=== PATIENT | male | born 1930 | race Caucasian/White ===

== ENCOUNTER → 2016-06-25 07:32 | Day surgery (SDC) | payer MEDICARE ==
--- NOTE | 2016-06-11 10:52 | HP ---
PREOPERATIVE HISTORY AND PHYSICAL: DATE OF SURGERY/ADMISSION: 06/25/16 PROCEDURE: Left carpal tunnel release. ACCOUNTANT PROPERTY: Dr. Butler. CHIEF COMPLAINT: Numbness and tingling, left hand. HISTORY OF PRESENT ILLNESS: This is an 85-year-old male who complains of numbness and tingling in h is left hand for the past 6 months. He also has symptoms in the right hand, but less so. He has villanueva d a nerve conduction study, which showed bilateral severe carpal tunnel syndrome. He is really only bothered with symptoms on the left. When he wakes up in the morning, his hand is painful and he villanueva s noticed weakness in his hand and loss of some muscle mass. There was no specific injury. Last ye ar, he had an aortic valve replacement. Prior to that he had been having some symptoms of shortness of breath and fatigue, but since surgery he has done very very well. He has not had any cardiac sy mptoms and has followed up with his soup mixer who had told him he is doing very well. He is inte rested in pursuing surgical intervention for the left carpal tunnel at this time in the form of a le ft carpal tunnel release. PAST MEDICAL HISTORY: 1. History of aortic valve dysfunction. 2. Hypertension. 3. Hypercholesterolemia. 4. Benign prostatic hypertrophy. PAST SURGICAL HISTORY: 1. Bilateral total knee arthroplasties. 2. Aortic valve replacement in June 2015. MEDICATIONS: 1. Amlodipine besylate 10 mg 1 tab daily. 2. Mikael aspirin 325 mg daily. 3. Finasteride 5 mg daily. 4. Flomax 0.4 mg daily. 5. Irbesartan/hydrochlorothiazide 150/12.5 mg daily. 6. Lipitor 10 mg daily. 7. Lisinopril 20 mg daily. 8. Metoprolol succinate ER 50 mg 1 tab b.i.d. 9. Niacin 500 mg 1 tab daily. 10. Vitamin B12, 1000 mcg daily. ALLERGIES: No known drug allergies. FAMILY MEDICAL HISTORY: Noncontributory. SOCIAL HISTORY: The patient is retired. He denies tobacco use or recreational drug use. Admits to alcohol use on a very rare occasion. REVIEW OF SYSTEMS: General: Negative for fevers, chills or night sweats. No known anesthesia prob lems. HEENT: Negative for headache, lightheadedness, or syncopal episodes. Integumentary: Negati ve for abrasions, lesions or open wounds. Cardiothoracic: Positive for hypertension. Negative for chest pain, palpitations or edema. Pulmonary: Negative for shortness of breath with exertion, lunchroom attendant armond cough or COPD. GI: Negative for nausea, vomiting, diarrhea, constipation or GERD. : Positiv e for benign prostatic hypertrophy. Negative for nocturia, urinary frequency or urgency. Musculosk eletal: Positive for current complaint. Negative for chronic or intermittent back pain. Neurologi luaren: Negative for history of seizure, stroke or epilepsy. Endocrine: Negative for diabetes or thy roid issues. Hematologic: Negative for easy bruising, anemia, excessive bleeding or history of DVT. Infectious Disease: Negative for history of MRSA, hepatitis C or HIV. PHYSICAL EXAMINATION GENERAL: Well-developed, well-nourished 85-year-old male in no acute distress. VITAL SIGNS: Height 5 feet 7 inches, weight 206 pounds. Pulse rate 75, blood pressure 164/75. HEENT: Normocephalic, atraumatic. Pupils are equal, round and reactive to light and accommodation. Extraocular movements are intact. NECK: Supple. No palpable lymph nodes. Throat is clear. PULMONARY: Lungs are clear to auscultation bilaterally. No wheezes, rales or rhonchi. CARDIOTHORACIC: Regular rate and rhythm. S1, S2. No murmurs, rubs or gallops. No edema. ABDOMEN: Positive bowel sounds. Soft, nontender. MUSCULOSKELETAL: On exam of his left hand, there is thenar wasting and weakness with thumb abductio n. He cannot make a full tight fist secondary to arthritic changes in his fingers. He does have fu ll extension of his fingers. He had decreased sensation to the median nerve distribution compared t o the ulnar nerve distribution. He has a mildly positive Tinel's in the left wrist and a positive P halen's test. NEUROLOGICAL: Alert and oriented x3. Cranial nerves II through XII are intact. Sensation is intact to light touch. IMAGING STUDIES: EMG nerve conduction study shows severe left carpal tunnel syndrome. IMPRESSION: Left carpal tunnel syndrome. PLAN: The patient is scheduled to undergo a left carpal tunnel release with Dr. Regalado on 06/25/16. He will return to the office 10 to 14 days postop for followup and suture removal. A prescription for Ultracet was e-scribed to the patient's pharmacy for postoperative pain management. We will get a note of clearance from his soup mixer, Dr. Butler, to prior to proceeding with surgery. DIANN WORRELL [id number]/[facility] #: [id number]
[~2016-06-25 07:32] MED LIST: Acetaminophen TAB* 325 MG PO PRN; Buffered Lidocaine 1% SYRIN* 3 ML/SYR SYRINGE INTRADERM ONE; Dexamethasone IV* 4 MG/ML 1 ML (4 MG) ONE; Dexamethasone TAB* 4 MG PO ONE; Famotidine IV* 10 MG/ML 2 ML (20 mg) IV ONE; Famotidine IV* 10 MG/ML 2 ML (20 mg) ONE; HYDROcodone/ACETAMIN 5-325 MG* 1 TAB PO PRN; Ibuprofen TAB* 400 MG PO PRN; Lidocaine 1% INJ* 10 MG/ML 30 ML SDV ONE; Lidocaine 2% PF* 5 ML VIAL ONE; Ondansetron INJ* 2 MG/ML VIAL IV PRN; Propofol* 10 MG/ML 20 ML BTL IV PUSH ONE; fentaNYL* 50 MCG/ML 2 ML VIAL (100 MCG VIAL) IV PRN; fentaNYL* 50 MCG/ML 2 ML VIAL (100 MCG VIAL) ONE
[2016-06-25 09:35] VITALS: BP 122/57
--- NOTE | 2016-06-25 22:19 | OP ---
DATE OF OPERATION: 06/25/16 [facility] DATE OF : 28 SURGEON: Dr. Regalado. [employer] WINDOWS ENGINEER: DIANN Middleton ANESTHESIA: Local MAC. PRE-OP DIAGNOSIS: Left carpal tunnel syndrome. POST-OP DIAGNOSIS: Left carpal tunnel syndrome. OPERATIVE PROCEDURE: Left carpal tunnel release. ESTIMATED BLOOD LOSS: Zero. TOURNIQUET TIME: 5 minutes. INDICATIONS: Eduard is an 85-year-old man with numbness and tingling in the median nerve distribution of his left hand. He presents for left carpal tunnel release. DESCRIPTION OF PROCEDURE: The patient was brought to the operating room, he was given a sedation anesthetic and a local infiltration of 10 cc of 1% plain lidocaine. The skin of his left hand and forearm was prepped and draped in the usual sterile fashion. The hand and forearm were exsanguinated and the tourniquet elevated to 250 mmHg. A longitudinal incision was made in the palm in line with the ring finger. We dissected through the subcutaneous tissue, down to the transverse carpal ligament. The ligament was divided sharply with a knife and then more proximally with the scissors. The nerve was dissected free from the surrounding tissue and there was an area of marked compression at the mid portion of the ligament. The wound was irrigated and the skin edges were reapproximated with 4-0 suture. The wound was dressed with Xeroform, 4x4, Webril, and a Sixto wrap. The patient tolerated the procedure well, was brought to the recovery room in good condition. [id number]/[facility] #: [id number] MTDD
== END | disposition home or self-care (01) ==
LOC: OREAST 07:32
PROVIDERS: ATTEND Orthopaedic Surgery
DX: G56.02 Carpal tunnel syndrome, left upper limb (principal); I10 Essential (primary) hypertension; E78.5 Hyperlipidemia, unspecified; Z95.2 Presence of prosthetic heart valve
CPT/HCPCS: J1100; J2001; J2704; J3010

== ENCOUNTER → 2017-03-21 11:31 | Emergency (ER) | payer MEDICARE ==
[2017-03-21 12:38] LABS: ABS Basophils 0 10^3/ul (0-0.2); ABS Eosinophils 0.1 10^3/ul (0-0.6); ABS Lymphocytes 0.9 10^3/ul (1.0-4.8); ABS Monocytes 0.8 10^3/ul (0-0.8); ABS Neutrophils 7.5 10^3/ul (1.5-7.7); ABS Nucleated RBC 0.01 10^3/ul; Eosinophil % 1.5 % (0-6); Hematocrit 37 % (42-52); Hemoglobin 12.4 g/dl (14.0-18.0); Lymphocyte % 9.3 % (25-47); Mean Corpuscular HGB Conc 34 g/dl (31-36); Mean Corpuscular Hemoglobin 29 pg (27-31); Mean Corpuscular Volume 85 fL (80-94); Mean Platelet Volume 9 um3 (7.4-10.4); Nucleated Red Blood Cells % 0.1; Platelet Count 214 10^3/ul (150-450); Red Cell Distribution Width 15 % (10.5-15); White Blood Count 9.3 10^3/ul (3.5-10.8)
[2017-03-21 12:44] LABS: INR 1.02 (0.77-1.02)
[2017-03-21 12:49] LABS: EGFR Non-African American 67.6 (>60)
--- NOTE | 2017-03-21 13:21 | RAD ---
INDICATION: Worsening of RIGHT lower back pain. COMPARISON: No relevant prior exams available on the [facility]. TECHNIQUE: Multidetector CT images were obtained from the lung bases to the ischial tuberosities. Evaluation of the viscera is limited without IV contrast. Multiplanar reformation. REPORT: Calcific plaque along the diaphragmatic surfaces most consistent with prior asbestos exposure. No suspicious basilar pulmonary lesions or pleural effusions. No CT abnormality of the unenhanced liver. The gallbladder is packed with stones. Negative for biliary dilatation. No CT abnormality of the pancreas or spleen. No CT abnormality of the upper GI, small bowel, or retrocecal appendix. Mild colonic diverticulosis without findings of diverticulitis. Negative for ascites, free air, or significant hernias. Normal adrenal glands. Unremarkable kidneys. Unremarkable nondilated ureters and partially distended urinary bladder. Mild calcification at the prostate. Negative for lymphadenopathy. Peripheral vascular calcifications. Negative for aortoiliac aneurysm. Physiologic distention of the IVC. Negative for suspicious focal osseous lesions or fracture. 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 Grade 2 L3-L4 degenerative anterolisthesis. Grade 1 degenerative L4-L5 anterolisthesis. At L3-L4 degenerative anterolisthesis, degenerative spondylosis with moderately severe disc space loss and facet joint osteoarthritis results in moderate bilateral foraminal stenosis. Degenerative spondylosis and posterior element osteoarthritis results in moderately severe acquired central canal stenosis. At L4-L5 similar factors result in mild RIGHT and moderate LEFT foraminal stenosis. Degenerative spondylosis and posterior element osteoarthritis results in mild acquired central canal stenosis. At L5-S1 degenerative spondylosis and facet joint osteoarthritis results in moderately severe RIGHT foraminal stenosis. IMPRESSION: 1. Stigmata of prior asbestos exposure with calcified pleural plaques along the diaphragmatic surfaces. 2. Cholelithiasis without additional CT of the malleus of the gallbladder. 3. Normal appendix documented. Mild colonic diverticulosis. 4. Negative for urolithiasis or obstructive uropathy. 5. Multilevel acquired spinal stenosis as described.
[2017-03-21 13:45] LABS: Urine Appearance Clear; Urine Blood 1+ (Negative); Urine Color Straw; Urine Ketones Negative (Negative); Urine Protein Negative (Negative); Urine Specific Gravity 1.005 (1.010-1.030); Urine Urobilinogen Negative (Negative)
--- NOTE | 2017-03-21 13:59 | ED ---
Back Pain - HPI Summary HPI Summary: Patient presents with daughter to the ED with CC of right lower back pain which has been present since about the summer time. Pain is stabbing, intermittent and worse with certain movements. He denies pain on a daily basis, but states recently has gotten worse. Has been using lidocaine patches with mild relief. Today, tried to have the licodaine patch, but was not helping. Denies fevers, sweats or chills. Denies urinary symptoms including hematuria. Never dx with kidney stones. Hx includes valve replacement, but denies other. Takes tylenol intermittently for the low back pain with mild relief. Patient states he is very active, with first onset of pain in the low back identified while mowing the lawn this summer. Denies hx of back pain. Denies b/b dysfunction. Aggravated with bending forward or sitting, better with lidocaine patch. Never tried pain management. - History of Current Complaint Chief Complaint: EDBackInjuryPain Stated Complaint: BACK PAIN Time Seen by Provider: 03/21/17 11:49 Hx Obtained From: Patient Onset/Duration: Sudden Onset, Worse Since Onset/Duration: Started Days Ago Timing: Intermittent, Lasting Minutes Back Pain Location: Is Discrete @ - low right back pain Severity Initially: Moderate Severity Currently: Moderate Pain Intensity: 2 Pain Scale Used: 0-10 Numeric Character: Sharp Aggravating Symptom(s): Bending Associated Signs And Symptoms: Positive: Negative. Negative: Swelling, Redness , Bruising, Fever, Weakness, Numbness, Tingling, Abdominal Pain, Flank Pain, Bladder Incontinence, Bowel Incontinence, Weight Loss, Pain with Weight Bearing - Risk Factors AAA Risk Factors: Negative TAD Risk Factors: Negative Cauda Equina Risk Factors: Negative Epidural Abscess Risk Factors: Negative - Allergies/Home Medications Allergies/Adverse Reactions: Allergies Allergy/AdvReac Type Severity Reaction Status Date / Time No Known Allergies Allergy Verified 06/25/16 07:55 PMH/Surg Hx/FS Hx/Imm Hx Previously Healthy: Yes Endocrine/Hematology History: Reports: Hx Diabetes, Hx Thyroid Disease Cardiovascular History: Reports: Hx Hypertension, Hx 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, Other Cardiovascular Problems/Disorders - HIGH CHOLESTEROL Respiratory History: Reports: Hx Asthma Denies: Hx Chronic Obstructive Pulmonary Disease (COPD) GI History: Reports: Hx Ulcer History: Reports: Other Problems/Disorders - ENLARGED PROSTATE Musculoskeletal History: Reports: Hx Arthritis Sensory History: Reports: Hx Cataracts - 12/09, 12/16, Hx Contacts or Glasses Denies: Hx Hearing Aid Opthamlomology History: Reports: Hx Cataracts - 12/09, 12/16, Hx Contacts or Glasses Neurological History: Reports: Hx Nerve Disease - carpal tunnel left hand - Surgical History Surgery Procedure, Year, and Place: Knee Replacement bilat. Aortic valve replacement 2016 Hx Anesthesia Reactions: No - Immunization History Date of Influenza Vaccine: 10/2016 Hx Pertussis Vaccination: No Immunizations Up to Date: Unable to Obtain/Confirm Infectious Disease History: No Infectious Disease History: Reports: Hx Hepatitis, Hx Human Immunodeficiency Virus (HIV) Denies: Traveled Outside the [place] in Last 30 Days - Family History Known Family History: Positive: Hypertension - Social History Occupation: Unemployed, Retired Lives: With Family Alcohol Use: Rare Hx Substance Use: No Substance Use Type: Reports: None Hx Tobacco Use: Yes Smoking Status (MU): Never Smoked Tobacco Review of Systems Constitutional: Negative Negative: Fever, Chills, Fatigue Eyes: Negative ENT: Negative Respiratory: Negative Gastrointestinal: Negative Positive: no symptoms reported, see HPI Positive: Arthralgia - right low back pain just superior to the sciatic joint Skin: Negative Neurological: Negative All Other Systems Reviewed And Are Negative: Yes Physical Exam Triage Information Reviewed: Yes Vital Signs On Initial Exam: Initial Vitals Temp Pulse Resp BP Pulse Ox 98.7 F 80 18 164/78 98 03/21/17 11:31 03/21/17 11:31 03/21/17 11:31 03/21/17 11:31 03/21/17 11:31 Vital Signs Reviewed: Yes Appearance: Positive: Well-Appearing, No Pain Distress, Well-Nourished Skin: Positive: Warm, Skin Color Reflects Adequate Perfusion Head/Face: Positive: Normal Head/Face Inspection Eyes: Positive: EOMI, TEENA, Conjunctiva Clear Neck: Positive: Supple, Nontender, No Lymphadenopathy Respiratory/Lung Sounds: Positive: Clear to Auscultation, Breath Sounds Present Cardiovascular: Positive: RRR, Pulses are Symmetrical in both Upper and Lower Extremities Musculoskeletal: Positive: Pain @ - right lower back pain just superior to the sciatic joint. Negative: Joby Sign Left, Joby Sign Right, Edema Left, Edema Right Neurological: Positive: Sensory/Motor Intact, Alert, Oriented to Person Place, Time, Speech Normal Psychiatric: Positive: Normal, Affect/Mood Appropriate Diagnostics - Vital Signs Vital Signs Temp Pulse Resp BP Pulse Ox 03/21/17 13:00 75 98 03/21/17 12:30 75 140/62 96 03/21/17 12:21 76 97 03/21/17 12:20 151/62 03/21/17 11:31 98.7 F 80 18 164/78 98 - Laboratory Lab Results: Lab Results 03/21/17 03/21/17 03/21/17 Range/Units 12:17 12:17 12:17 WBC 9.3 (3.5-10.8) 10^3/ul RBC 4.30 (4.0-5.4) 10^6/ul Hgb 12.4 L (14.0-18.0) g/dl Hct 37 L (42-52) % MCV 85 (80-94) fL MCH 29 (27-31) pg MCHC 34 (31-36) g/dl RDW 15 (10.5-15) % Plt Count 214 (150-450) 10^3/ul MPV 9 (7.4-10.4) um3 Neut % (Auto) 80.0 (38-83) % Lymph % (Auto) 9.3 L (25-47) % George % (Auto) 8.8 (1-9) % Eos % (Auto) 1.5 (0-6) % Baso % (Auto) 0.4 (0-2) % Absolute Neuts (auto) 7.5 (1.5-7.7) 10^3/ul Absolute Lymphs (auto) 0.9 L (1.0-4.8) 10^3/ul Absolute Monos (auto) 0.8 (0-0.8) 10^3/ul Absolute Eos (auto) 0.1 (0-0.6) 10^3/ul Absolute Basos (auto) 0 (0-0.2) 10^3/ul Absolute Nucleated RBC 0.01 10^3/ul Nucleated RBC % 0.1 INR (Anticoag Therapy) 1.02 (0.77-1.02) Sodium 137 (133-145) mmol/L Potassium 3.6 (3.5-5.0) mmol/L Chloride 102 (101-111) mmol/L Carbon Dioxide 28 (22-32) mmol/L Anion Gap 7 (2-11) mmol/L BUN 16 (6-24) mg/dL Creatinine 1.04 (0.67-1.17) mg/dL Est GFR ( Amer) 86.9 (>60) Est GFR (Non-Af Amer) 67.6 (>60) BUN/Creatinine Ratio 15.4 (8-20) Glucose 137 H (70-100) mg/dL Lactic Acid (0.5-2.0) mmol/L Calcium 9.4 (8.6-10.3) mg/dL Magnesium 1.9 (1.9-2.7) mg/dL Total Bilirubin 0.70 (0.2-1.0) mg/dL AST 11 L (13-39) U/L ALT 8 (7-52) U/L Alkaline Phosphatase 79 (34-104) U/L C-Reactive Protein 17.00 H (< 5.00) mg/L Total Protein 7.7 (6.4-8.9) g/dL Albumin 4.2 (3.2-5.2) g/dL Globulin 3.5 (2-4) g/dL Albumin/Globulin Ratio 1.2 (1-3) Lipase 48 (11.0-82.0) U/L Urine Color Urine Appearance Urine pH (5-9) Ur Specific [place] (1.010-1.030) Urine Protein (Negative) Urine Ketones (Negative) Urine Blood (Negative) Urine Nitrate (Negative) Urine Bilirubin (Negative) Urine Urobilinogen (Negative) Ur Leukocyte Esterase (Negative) Urine WBC (Auto) (Absent) Urine RBC (Auto) (Absent) Urine Bacteria (Absent) Urine Glucose (Negative) 03/21/17 03/21/17 Range/Units 12:17 13:23 WBC (3.5-10.8) 10^3/ul RBC (4.0-5.4) 10^6/ul Hgb (14.0-18.0) g/dl Hct (42-52) % MCV (80-94) fL MCH (27-31) pg MCHC (31-36) g/dl RDW (10.5-15) % Plt Count (150-450) 10^3/ul MPV (7.4-10.4) um3 Neut % (Auto) (38-83) % Lymph % (Auto) (25-47) % George % (Auto) (1-9) % Eos % (Auto) (0-6) % Baso % (Auto) (0-2) % Absolute Neuts (auto) (1.5-7.7) 10^3/ul Absolute Lymphs (auto) (1.0-4.8) 10^3/ul Absolute Monos (auto) (0-0.8) 10^3/ul Absolute Eos (auto) (0-0.6) 10^3/ul Absolute Basos (auto) (0-0.2) 10^3/ul Absolute Nucleated RBC 10^3/ul Nucleated RBC % INR (Anticoag Therapy) (0.77-1.02) Sodium (133-145) mmol/L Potassium (3.5-5.0) mmol/L Chloride (101-111) mmol/L Carbon Dioxide (22-32) mmol/L Anion Gap (2-11) mmol/L BUN (6-24) mg/dL Creatinine (0.67-1.17) mg/dL Est GFR ( Amer) (>60) Est GFR (Non-Af Amer) (>60) BUN/Creatinine Ratio (8-20) Glucose (70-100) mg/dL Lactic Acid 1.5 (0.5-2.0) mmol/L Calcium (8.6-10.3) mg/dL Magnesium (1.9-2.7) mg/dL Total Bilirubin (0.2-1.0) mg/dL AST (13-39) U/L ALT (7-52) U/L Alkaline Phosphatase (34-104) U/L C-Reactive Protein (< 5.00) mg/L Total Protein (6.4-8.9) g/dL Albumin (3.2-5.2) g/dL Globulin (2-4) g/dL Albumin/Globulin Ratio (1-3) Lipase (11.0-82.0) U/L Urine Color Straw Urine Appearance Clear Urine pH 6.0 (5-9) Ur Specific [place] 1.005 L (1.010-1.030) Urine Protein Negative (Negative) Urine Ketones Negative (Negative) Urine Blood 1+ H (Negative) Urine Nitrate Negative (Negative) Urine Bilirubin Negative (Negative) Urine Urobilinogen Negative (Negative) Ur Leukocyte Esterase Negative (Negative) Urine WBC (Auto) Trace(0-5/hpf) (Absent) Urine RBC (Auto) Trace(0-2/hpf) (Absent) Urine Bacteria Absent (Absent) Urine Glucose Negative (Negative) Result Diagrams: 03/21/17 12:17 03/21/17 12:17 Lab Statement: Any lab studies that have been ordered have been reviewed, and results considered in the medical decision making process. Back Pain Course/Dx - Course Course Of Treatment: Patient presents with right low back pain. He has been seen here previously with CT lumbar performed which showed no acute findings or reasons for his symptoms. Since his symptoms have persisted for this long, he wanted to check for any kidney pathology. Denies urinary symptoms or obstructive symptoms. CT abd/pelvis: MPRESSION: 1. Stigmata of prior asbestos exposure with calcified pleural plaques along the. diaphragmatic surfaces. 2. Cholelithiasis without additional CT of the malleus of the gallbladder. 3. Normal appendix documented. Mild colonic diverticulosis. 4. Negative for urolithiasis or obstructive uropathy. 5. Multilevel acquired spinal stenosis as described. UA negative. Patient is given tramadol 50mg BID for any breakthrough symptoms. He will reamin on tylenol or ibuprofen for any pain. Treatment options explained to patient. Patient understands the plan, voices no concerns at this time and understands the return precatuions given to them if they develop any worsening or changing symptoms. They are OK for discharge at this time. VS stable on discharge. Primary care follow up as agreed on discharge. I have encouraged PT as well. - Diagnoses Provider Diagnoses: Right low back pain Discharge - Discharge Plan Condition: Stable Disposition: HOME Prescriptions: Lidocaine PATCH 5%* [Lidoderm 5% Patch*] 1 patch TRANSDERM DAILY #15 patch traMADol TAB* [Ultram*] 50 mg PO Q8H PRN #20 tab MDD 3 PRN Reason: Pain Patient Education Materials: Muscle Spasm (ED), Back Pain (ED) Referrals: Nehemias Hopkins MD [Primary Care Provider] - Additional Instructions: Please follow up with your PCP Lidocaine patch daily as needed for acute low back pain Tylenol 650mg or Ibuprofen 600mg both used intermittently as explained For breakthrough symptoms, please take the tramadol only up to three times daily for breakthrough pain if tylenol and ibuprofen are not improving your symptoms I recommend physical therapy Talk to your doctor about this
[2017-03-21 14:48] VITALS: BP 134/76
== END | disposition home or self-care (01) ==
LOC: ED 11:31
DX: M48.07 Spinal stenosis, lumbosacral region (principal); J92.0 Pleural plaque with presence of asbestos; K80.20 Calculus of gallbladder without cholecystitis without obstruction; K57.90 Diverticulosis of intestine, part unspecified, without perforation or abscess without bleeding
CPT/HCPCS: 36415; 74176; 80053; 81003; 81015; 83605; 83690; 83735; 85025; 85610; 86140; 99282

== ENCOUNTER 2017-06-22 14:14 | Emergency (ER) | payer MEDICARE ==
[2017-06-22 15:10] LABS: EGFR Non-African American 60.2 (>60)
--- NOTE | 2017-06-22 15:14 | RAD ---
HISTORY: Chest pain COMPARISONS: May 31, 2014 VIEWS: 1: frontal portable view of the chest at 2:51 PM FINDINGS: LINES AND TUBES: None. CARDIOMEDIASTINAL SILHOUETTE: The cardiomediastinal silhouette is normal for portable technique. PLEURA: The costophrenic angles are sharp. There are calcified pleural plaques.. LUNG PARENCHYMA: The lungs are clear. ABDOMEN: The upper abdomen is clear. There is no subphrenic gas. BONES AND SOFT TISSUES: The patient is status post median sternotomy. IMPRESSION: CALCIFIED PLEURAL PLAQUES. NO ACTIVE CARDIOPULMONARY DISEASE.
[2017-06-22 15:27] LABS: ABS Basophils 0.1 10^3/ul (0-0.2); ABS Eosinophils 0.2 10^3/ul (0-0.6); ABS Neutrophils 6.5 10^3/ul (1.5-7.7); ABS Nucleated RBC 0 10^3/ul; Hematocrit 32 % (42-52); Lymphocyte % 11.7 % (25-47); Mean Corpuscular HGB Conc 34 g/dl (31-36); Mean Corpuscular Hemoglobin 28 pg (27-31); Mean Corpuscular Volume 83 fL (80-94); Nucleated Red Blood Cells % 0; Platelet Count 191 10^3/ul (150-450); Red Blood Count 3.88 10^6/ul (4.0-5.4); Red Cell Distribution Width 16 % (10.5-15); White Blood Count 8.8 10^3/ul (3.5-10.8)
[2017-06-22] MEDS ORDERED: Metoprolol Succinate XL TAB* 50 MG PO ONE (15:52)
[2017-06-22 16:03] LABS: Urine Appearance Clear; Urine Blood Negative (Negative); Urine Color Straw; Urine Ketones Negative (Negative); Urine Protein Negative (Negative); Urine Specific Gravity 1.004 (1.010-1.030); Urine Urobilinogen Negative (Negative)
[2017-06-22 18:06] VITALS: BP 138/63
--- NOTE | 2017-06-24 07:54 | ED ---
Jad Leon Angela, scribed for Tani Guzmán MD on 06/22/17 at 1431 . HPI Chest Pain - HPI Summary HPI Summary: This pt is a 86 y/o male presenting to [facility] c/o intermittent chest pain since last night at 22:00. Pt reports last night he had chest pain across his chest, but resolved on its own. He had another episode of chest pain at midnight but also resolved. Today pt states he had another episode of chest pain at 13:30 and he describes it as "shooting." He reports his chest pain are intermittent and only last about 1 minute. Pt notes he has been a little bit more SOB than usual. Currently he denies any chest pain. Denies nausea, vomiting, fever. He is currently asymptomatic. PMHx includes trifecta tissue valve replacement in 2016. - History of Current Complaint Chief Complaint: EDChestWallPain Time Seen by Provider: 06/22/17 14:22 Hx Obtained From: Patient Onset/Duration: Started Hours Ago, Resolved Timing: Intermittent, Lasting Minutes - 1 Current Severity: None Pain Intensity: 0 Pain Scale Used: 0-10 Numeric Chest Pain Location: Diffuse Chest Pain Radiates: No Character: Other: - "mild" chest pain Aggravating Factor(s): Nothing Alleviating Factor(s): Spontaneous Resolution Associated Signs and Symptoms: Positive: Chest Pain, Shortness of Breath. Negative: Fever, Nausea, Vomiting - Allergy/Home Medications Allergies/Adverse Reactions: Allergies Allergy/AdvReac Type Severity Reaction Status Date / Time No Known Allergies Allergy Verified 06/22/17 14:17 Home Medications: Home Medications Aspirin EC TAB* [Ecotrin EC TAB*] 325 mg PO DAILY 06/22/17 [History Confirmed ] Atorvastatin* [Lipitor*] 10 mg PO DAILY 06/22/17 [History Confirmed 06/22/17] Cyanocobalamin TAB* [Vitamin B12 TAB*] 1,000 mcg PO DAILY 06/22/17 [History Confirmed 06/22/17] Finasteride TAB* [Proscar TAB*] 5 mg PO DAILY 06/22/17 [History Confirmed ] Irbesartan/Hydrochlor 150/12.5 [Irbesartan/Hydrochlorothi 150-12.5 mg] 1 tab PO DAILY 06/22/17 [History Confirmed 06/22/17] Lisinopril TAB* [Prinivil TAB*] 20 mg PO DAILY 06/22/17 [History Confirmed 06/22] Meloxicam(NF) [Mobic(NF)] 7.5 mg PO DAILY 06/22/17 [History Confirmed 06/22/17] Metoprolol Succinate XL TAB* [Toprol XL TAB*] 50 mg PO BID 06/22/17 [History Confirmed 06/22/17] Tamsulosin CAP* [Flomax CAP*] 0.4 mg PO DAILY 06/22/17 [History Confirmed ] amLODIPine TAB* [Norvasc 5 mg TAB*] 10 mg PO DAILY 06/22/17 [History Confirmed 06/22/17] PMH/Surg Hx/FS Hx/Imm Hx Endocrine/Hematology History: Reports: Hx Thyroid Disease Denies: Hx Diabetes Cardiovascular History: Reports: Hx Hypertension, Hx 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, Other Cardiovascular Problems/Disorders - HIGH CHOLESTEROL Denies: Hx Pacemaker/ICD Respiratory History: Reports: Hx Asthma Denies: Hx Chronic Obstructive Pulmonary Disease (COPD) GI History: Reports: Hx Ulcer History: Reports: Other Problems/Disorders - ENLARGED PROSTATE Denies: Hx Renal Disease Musculoskeletal History: Reports: Hx Arthritis, Hx Back Problems Sensory History: Reports: Hx Cataracts - 12/09, 12/16, Hx Contacts or Glasses Denies: Hx Hearing Aid Opthamlomology History: Reports: Hx Cataracts - 12/09, 12/16, Hx Contacts or Glasses Neurological History: Reports: Hx Nerve Disease - carpal tunnel left hand Psychiatric History: Denies: Hx Panic Disorder - Surgical History Surgery Procedure, Year, and Place: Knee Replacement bilat. Aortic valve replacement 2016 - [facility] TRIFECTA TISSUE VALVE MODEL # TF21A (@ [facility])- CONDITIONAL 5 UP TO 3T FOR MRIs ( PT KNOWNS TO BRING CARD). CATARACT Hx Anesthesia Reactions: No - Immunization History Date of Influenza Vaccine: 10/2016 Infectious Disease History: No Infectious Disease History: Reports: Hx Hepatitis, Hx Human Immunodeficiency Virus (HIV) Denies: Traveled Outside the in Last 30 Days - Family History Known Family History: Positive: Hypertension - Social History Alcohol Use: None Hx Substance Use: No Substance Use Type: Reports: None Hx Tobacco Use: Yes Smoking Status (MU): Never Smoked Tobacco Review of Systems Negative: Fever, Chills Negative: Chest Pain - currently denies chest pain Positive: Shortness Of Breath Negative: Vomiting, Nausea Skin: Negative Neurological: Negative All Other Systems Reviewed And Are Negative: Yes Physical Exam - Summary Physical Exam Summary: VITAL SIGNS: Reviewed. GENERAL: Patient is a well-developed and nourished male who is lying comfortable in the stretcher. Patient is not in any acute respiratory distress. HEAD AND FACE: No signs of trauma. No ecchymosis, hematomas or skull depressions. No sinus tenderness. EYES: PERRLA, EOMI x 2, No injected conjunctiva, no nystagmus. EARS: Hearing grossly intact. Ear canals and tympanic membranes are within normal limits. MOUTH: Oropharynx within normal limits. NECK: Supple, trachea is midline, no adenopathy, no JVD, no carotid bruit, no c- spine tenderness, neck with full ROM. CHEST: Symmetric, no tenderness at palpation LUNGS: Clear to auscultation bilaterally. No wheezing or crackles. CVS: Regular rate and rhythm, S1 and S2 present, no murmurs or gallops appreciated. ABDOMEN: Soft, non-tender. No signs of distention. No rebound no guarding, and no masses palpated. Bowel sounds are normal. EXTREMITIES: FROM in all major joints, no edema, no cyanosis or clubbing. NEURO: Alert and oriented x 3. No acute neurological deficits. Speech is normal and follows commands. SKIN: Dry and warm Triage Information Reviewed: Yes Vital Signs On Initial Exam: Initial Vitals Temp Pulse Resp BP Pulse Ox 98.3 F 44 16 150/57 96 06/22/17 14:17 06/22/17 14:17 06/22/17 14:17 06/22/17 14:17 06/22/17 14:17 Vital Signs Reviewed: Yes Diagnostics - Vital Signs Vital Signs Temp Pulse Resp BP Pulse Ox 06/22/17 14:17 98.3 F 44 16 150/57 96 - Laboratory Result Diagrams: 06/22/17 15:19 06/22/17 15:51 Lab Statement: Any lab studies that have been ordered have been reviewed, and results considered in the medical decision making process. - Radiology Chest XR Xray Interpretation: Positive (See Comments) - IMPRESSION: Calcified pleural plaques. No active cardiopulmonary disease. Dr. Guzmán has reviewed this radiology report. Radiology Interpretation Completed By: Radiologist - EKG 14:26 Cardiac Rate: Tachycardia EKG Rhythm: Atrial Fibrillation - at 114 bpm Ectopy: PVCs EKG Interpretation: Bigeminy. Re-Evaluation - Re-Evaluation First Eval Re-Evaluation Time: 18:03 Comment: I reviewed the lab, EKG and CXR results with the pt. He will be discharged home. Chest Pain Course/Dx - Course Assessment/Plan: This pt is a 86 y/o male presenting to [facility] c/o intermittent chest pain since last night at 22:00. Pt reports last night he had chest pain across his chest, but resolved on its own. He had another episode of chest pain at midnight but also resolved. Today pt states he had another episode of chest pain at 13:30 and he describes it as "shooting." He reports his chest pain are intermittent and only last about 1 minute. Pt notes he has been a little bit more SOB than usual. Currently he denies any chest pain. Denies nausea, vomiting , fever. Pt reports he is currently asymptomatic. PMHx includes trifecta tissue valve replacement in 2016. Test results without any significant abnormalities except for hemoglobin of 11, hematocrit of 32, glucose of 144, BNP of 265. Two troponins, 4 hours apart, are both negative. Urinalysis is negative for UTI. Chest XR shows calcified pleural plaques. No active cardiopulmonary disease. EKG shows atrial fibrillation with PVCs and bigeminy. In the ED course the pt was given metoprolol for elevated blood pressure, and his blood pressure decreased from 150/67 to 136/63. Pt continues to be asymptomatic, and he is chest pain free. Therefore he will be discharged to home with follow up from his PCP. I discussed all the findings and test results with the patient. All questions were answered to patient satisfaction. There were no further complaints or concerns. He is instructed to return to the ED for any worsening or new symptoms. Pt is hemodynamically stable, alert and oriented x3. - Diagnoses Provider Diagnoses: Atypical chest pain Discharge - Sign-Out/Discharge Documenting (check all that apply): Discharge - discharge to home - Discharge Plan Condition: Stable Disposition: HOME Patient Education Materials: Chest Pain (ED) Referrals: Nehemias Hopkins MD [Primary Care Provider] - 3 Days Additional Instructions: Please follow up with your primary care provider. RETURN TO THE ED FOR ANY NEW OR WORSENING SYMPTOMS. The documentation as recorded by the Jad whitt Angela accurately reflects the service I personally performed and the decisions made by , Tani Guzmán MD.
== END 2017-06-22 17:59 | disposition home or self-care (01) ==
LOC: ED 14:14
DX: R07.89 Other chest pain (principal); R06.02 Shortness of breath; I10 Essential (primary) hypertension; Z95.2 Presence of prosthetic heart valve; Z79.899 Other long term (current) drug therapy; I48.91 Unspecified atrial fibrillation
CPT/HCPCS: 36415; 71045; 80053; 81003; 82550; 82553; 83735; 83880; 84436; 84443; 84484; 85025; 85610; 93005; 99283

== ENCOUNTER 2017-09-06 10:57 | Emergency (ER) | payer MEDICARE ==
[2017-09-06] MEDS ORDERED: NS 0.9% 1000 ML* 1,000 ML IV ONE (11:41)
[2017-09-06 12:18] LABS: ABS Basophils 0.1 10^3/ul (0-0.2); ABS Eosinophils 0.1 10^3/ul (0-0.6); ABS Lymphocytes 0.9 10^3/ul (1.0-4.8); ABS Monocytes 0.9 10^3/ul (0-0.8); ABS Neutrophils 7.5 10^3/ul (1.5-7.7); ABS Nucleated RBC 0 10^3/ul; Eosinophil % 1.1 % (0-6); Hematocrit 36 % (42-52); Lymphocyte % 9.5 % (25-47); Mean Corpuscular HGB Conc 33 g/dl (31-36); Mean Corpuscular Hemoglobin 27 pg (27-31); Mean Corpuscular Volume 82 fL (80-94); Mean Platelet Volume 8.6 um3 (7.4-10.4); Nucleated Red Blood Cells % 0; Platelet Count 190 10^3/ul (150-450); Red Blood Count 4.44 10^6/ul (4.00-5.40); Red Cell Distribution Width 16 % (10.5-15); White Blood Count 9.5 10^3/ul (3.5-10.8)
--- NOTE | 2017-09-06 12:24 | RAD ---
INDICATION: Upper thoracic back pain. COMPARISON: Comparison is made with a prior CT of the chest from June 18, 2014 and prior chest x-ray studies from May 31, 2014 and June 22, 2017. TECHNIQUE: A portable view of the chest was obtained. FINDINGS: The patient is status post sternotomy. The heart appears to be within normal limits in size. There are bilateral numerous calcified pleural plaques limiting the study. The lungs appear grossly clear. No pleural effusion is seen. IMPRESSION: 1. POSTSURGICAL CHANGES, NO EVIDENCE FOR ACUTE FINDING. 2. CALCIFIED PLEURAL PLAQUES SUGGESTIVE OF PRIOR ASBESTOS EXPOSURE.
[2017-09-06 12:40] LABS: EGFR Non-African American 74.1 (>60)
[2017-09-06] MEDS ORDERED: Iohexol 350* (CONTRAST) 500 ML MDV IV ONE (13:15)
--- NOTE | 2017-09-06 14:27 | RAD ---
HISTORY: neck pain COMPARISONS: None TECHNIQUE: Multiple contiguous axial CT scans were obtained of the cervical spine without intravenous contrast, with coronal and sagittal multiplanar reformations. FINDINGS: BRAIN: The visualized brain is unremarkable CENTRAL CANAL: Evaluation of the central canal is limited on CT technique; however, there is no obvious canalicular mass or epidural hemorrhage. ALIGNMENT: The alignment is normal, without subluxation or dislocation. VERTEBRAL BODIES: There is anterolateral marginal osteophyte formation most pronounced at C5-C6 and C6-C7. JOINTS: There is uncovertebral and facet osteoarthritis. MUSCULATURE: Unremarkable INTERVERTEBRAL DISCS: There is diffuse loss of intervertebral disc height. AXIAL IMAGES: C2-C3: There is no osseous neural foraminal narrowing or central canal stenosis. C3-C4: There is no osseous neural foraminal narrowing or central canal stenosis. C4-C5: There is no osseous neural foraminal narrowing or central canal stenosis. C5-C6: There is a broad-based disc osteophyte complex with a central posterior osteophyte. There is no significant osseous neural foraminal narrowing or central canal stenosis. C6-C7: There is no osseous neural foraminal narrowing or central canal stenosis. C7-T1: There is no osseous neural foraminal narrowing or central canal stenosis. SOFT TISSUES: There are right thyroid nodules measuring up to 1 cm in size. The prevertebral fat stripe is preserved. There is calcification of the carotid bifurcations. OTHER: None. IMPRESSION: DEGENERATIVE DISC DISEASE AND OSTEOARTHRITIS, WITHOUT SIGNIFICANT OSSEOUS NEURAL FORAMINAL NARROWING OR CENTRAL CANAL STENOSIS.
--- NOTE | 2017-09-06 14:30 | RAD ---
INDICATION: Upper thoracic back pain. COMPARISON: Comparison is made with a prior chest x-ray study from May 31, 2014. TECHNIQUE: Contiguous axial sections were obtained beginning above the C7 vertebra and scanning through the L1 vertebra. Images were reconstructed in the sagittal and coronal planes. FINDINGS: There is a mild dorsal scoliosis convex toward the right in the upper dorsal region and toward the left at the dorsal lumbar junction. The vertebra are otherwise in normal alignment. There is a mild compression fracture of the superior endplate of the T1 vertebral body, age indeterminate. No other fractures are seen. There is mild to moderate diffuse degenerative disc disease throughout the dorsal spine. No significant spinal canal narrowing is seen. There are multiple bilateral calcified pleural plaques. There is a trace right pleural effusion and mild dependent bilateral lower lobe subsegmental atelectasis. IMPRESSION: 1. MILD COMPRESSION FRACTURE OF THE SUPERIOR ENDPLATE OF THE T1 VERTEBRAL BODY, AGE INDETERMINATE. 2. MILD TO MODERATE DIFFUSE DEGENERATIVE DISC DISEASE. 3. TRACE RIGHT PLEURAL EFFUSION. 4. BILATERAL PLEURAL PLAQUES SUGGESTIVE OF PRIOR ASBESTOS EXPOSURE.
--- NOTE | 2017-09-06 14:31 | RAD ---
INDICATION: Back pain. Evaluate for PE. Neck pain. Thoracic spine pain. COMPARISON: CT cervical spine same date; CT thoracic spine same date; chest x-ray same date TECHNIQUE: Axial source images were obtained from the thoracic inlet to the hemidiaphragms following administration of 78; CT chest June 18, [id number] angiographic technique was utilized. Coronal and sagittal reconstructed images were acquired. CHEST FINDINGS: Neck/thyroid: The visualized neck to include the thyroid appear normal. Chest wall: There are no acute abnormalities of the bony thorax or chest wall. There is sternotomy There is spondylitic change of the thoracic spine. Please refer to concurrent thoracic spine CT for further description of the thoracic spine. There is no supraclavicular, infraclavicular, or axillary lymphadenopathy. Lungs : There are interstitial fibrotic changes with coarsening of interstitium. There are no endobronchial lesions. Cardiomediastinal structures: There is no CT evidence of acute pulmonary embolic disease. The heart is normal in size. There is no pericardial effusion. There is no evidence of aortic aneurysm or dissection. There is aortic valvular stenting There is no mediastinal or hilar adenopathy. The esophagus appears normal. Pleura : There is extensive calcified pleural plaque formation consistent with occupational exposure. Other: There are multiple gallstones representing a recently documented finding. IMPRESSION: NO CT EVIDENCE OF ACUTE PULMONARY EMBOLIC DISEASE. 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 CHOLELITHIASIS
[2017-09-06 14:33] LABS: INR 0.99 (0.77-1.02)
--- NOTE | 2017-09-06 15:35 | RAD ---
Indication: Leg edema. Duplex Doppler sonography of the deep venous system of the left lower extremity deep venous system was performed. Bilaterally the common femoral veins appear patent and compressible. Left proximal greater saphenous vein, proximal deep femoral vein, femoral vein, popliteal vein, posterior tibial veins and peroneal veins appear patent and compressible.Visualization of the calf vein is Limited due to edema. Popliteal cyst measuring 4.0 x 2.1 x 4.4 cm is noted. IMPRESSION: NO EVIDENCE OF DEEP VENOUS THROMBOSIS IS IDENTIFIED.
[2017-09-06 16:21] VITALS: BP 144/77
--- NOTE | 2017-09-06 16:49 | ED ---
Jasson Leon Simon, scribed for iLon Barrientos MD on 09/06/17 at 1143 . Back Pain - HPI Summary HPI Summary: This patient is an 86 year old M presenting to [facility] accompanied by with a chief complaint of diffuse upper back pain for the last couple of days. Garden work worsened/causes pain. Pt denies similar sx in upper back. Pt endorses intermittent pain and pain from certain breaths that want to take the breath away. Pt endorses neck pain, unsure if it radiated from the back initially. Pt endorses occasional lower back pain. Pt denies nausea, diaphoresis, weakness, numbness, and CP. - History of Current Complaint Chief Complaint: EDBackInjuryPain Stated Complaint: BACK PAIN Time Seen by Provider: 09/06/17 11:29 Hx Obtained From: Patient Onset/Duration: Sudden Onset, Lasting Days Onset/Duration: Started Days Ago, Atraumatic, Still Present Timing: Intermittent Severity Initially: Moderate Severity Currently: Moderate Pain Intensity: 4 Pain Scale Used: 0-10 Numeric Character: Aching Aggravating Symptom(s): Movement, Bending Associated Signs And Symptoms: Positive: Swelling - bilateral pedal edema. Negative: Weakness, Numbness, Other - nausea, diaphoresis - Allergies/Home Medications Allergies/Adverse Reactions: Allergies Allergy/AdvReac Type Severity Reaction Status Date / Time No Known Allergies Allergy Verified 09/06/17 10:59 PMH/Surg Hx/FS Hx/Imm Hx Endocrine/Hematology History: Reports: Hx Thyroid Disease Denies: Hx Diabetes Cardiovascular History: Reports: Hx Hypertension, Hx 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, Other Cardiovascular Problems/Disorders - HIGH CHOLESTEROL Denies: Hx Pacemaker/ICD Respiratory History: Reports: Hx Asthma Denies: Hx Chronic Obstructive Pulmonary Disease (COPD) GI History: Reports: Hx Ulcer History: Reports: Other Problems/Disorders - ENLARGED PROSTATE Denies: Hx Renal Disease Musculoskeletal History: Reports: Hx Arthritis, Hx Back Problems Sensory History: Reports: Hx Cataracts - 12/09, 12/16, Hx Contacts or Glasses Denies: Hx Hearing Aid Opthamlomology History: Reports: Hx Cataracts - 12/09, 12/16, Hx Contacts or Glasses Neurological History: Reports: Hx Nerve Disease - carpal tunnel left hand Psychiatric History: Denies: Hx Panic Disorder - Surgical History Surgery Procedure, Year, and Place: Knee Replacement bilat. Aortic valve replacement 2016 - [facility] TRIFECTA TISSUE VALVE MODEL # TF21A (@ [facility])- CONDITIONAL 5 UP TO 3T FOR MRIs ( PT KNOWNS TO BRING CARD). CATARACT Hx Anesthesia Reactions: No - Immunization History Date of Influenza Vaccine: 10/2016 Immunizations Up to Date: Yes Infectious Disease History: No Infectious Disease History: Reports: Hx Hepatitis, Hx Human Immunodeficiency Virus (HIV) Denies: Traveled Outside the [place] in Last 30 Days - Family History Known Family History: Positive: Hypertension - Social History Alcohol Use: None Hx Substance Use: No Substance Use Type: Reports: None Hx Tobacco Use: Yes Smoking Status (MU): Never Smoked Tobacco Review of Systems Negative: Skin Diaphoresis Negative: Chest Pain Positive: Shortness Of Breath Positive: Nausea Positive: Arthralgia - upper and lower back, neck, all intermittent, Edema - chronic bilateral pedal edema Negative: Weakness, Numbness All Other Systems Reviewed And Are Negative: Yes Physical Exam - Summary Physical Exam Summary: General: well-appearing, no pain distress Skin: warm, color reflects adequate perfusion, dry, bilateral pedal edema Head: normal Eyes: EOMI, TEENA ENT: normal Neck: supple, nontender Respiratory: CTA, breath sounds present Cardiovascular: RRR Abdomen: soft, nontender Bowel: present Musculoskeletal: normal, strength/ROM intact, bilateral pedal edema Neurological: sensory/motor intact, A&O x3 Psychological: affect/mood appropriate Triage Information Reviewed: Yes Vital Signs On Initial Exam: Initial Vitals Temp Pulse Resp BP Pulse Ox 98.7 F 75 16 160/58 98 09/06/17 10:59 09/06/17 10:59 09/06/17 10:59 09/06/17 10:59 09/06/17 10:59 Vital Signs Reviewed: Yes Diagnostics - Vital Signs Vital Signs Temp Pulse Resp BP Pulse Ox 09/06/17 10:59 98.7 F 75 16 160/58 98 - Laboratory Lab Results: Lab Results 09/06/17 09/06/17 09/06/17 Range/Units 12:07 12:07 12:07 WBC 9.5 (3.5-10.8) 10^3/ul RBC 4.44 (4.00-5.40) 10^6/ul Hgb 12.0 L (14.0-18.0) g/dl Hct 36 L (42-52) % MCV 82 (80-94) fL MCH 27 (27-31) pg MCHC 33 (31-36) g/dl RDW 16 H (10.5-15) % Plt Count 190 (150-450) 10^3/ul MPV 8.6 (7.4-10.4) um3 Neut % (Auto) 79.1 (38-83) % Lymph % (Auto) 9.5 L (25-47) % Carson % (Auto) 9.7 H (0-7) % Eos % (Auto) 1.1 (0-6) % Baso % (Auto) 0.6 (0-2) % Absolute Neuts (auto) 7.5 (1.5-7.7) 10^3/ul Absolute Lymphs (auto) 0.9 L (1.0-4.8) 10^3/ul Absolute Monos (auto) 0.9 H (0-0.8) 10^3/ul Absolute Eos (auto) 0.1 (0-0.6) 10^3/ul Absolute Basos (auto) 0.1 (0-0.2) 10^3/ul Absolute Nucleated RBC 0 10^3/ul Nucleated RBC % 0 INR (Anticoag Therapy) (0.77-1.02) APTT (26.0-36.3) seconds D-Dimer, Quantitative (Less Than 230) ng/mL Sodium 137 (135-145) mmol/L Potassium 4.2 (3.5-5.0) mmol/L Chloride 102 (101-111) mmol/L Carbon Dioxide 27 (22-32) mmol/L Anion Gap 8 (2-11) mmol/L BUN 16 (6-24) mg/dL Creatinine 0.96 (0.67-1.17) mg/dL Est GFR ( Amer) 95.3 (>60) Est GFR (Non-Af Amer) 74.1 (>60) BUN/Creatinine Ratio 16.7 (8-20) Glucose 131 H (70-100) mg/dL Lactic Acid (0.5-2.0) mmol/L Calcium 9.8 (8.6-10.3) mg/dL Magnesium 2.1 (1.9-2.7) mg/dL Total Bilirubin 0.90 (0.2-1.0) mg/dL AST 16 (13-39) U/L ALT 8 (7-52) U/L Alkaline Phosphatase 94 (34-104) U/L Total Creatine Kinase 46 (10-223) U/L CK-MB (CK-2) 1.6 (0.6-6.3) ng/mL Troponin I 0.01 (<0.04) ng/mL C-Reactive Protein 8.82 H (<8.01) mg/L B-Natriuretic Peptide 205 H ( - 100) pg/mL Total Protein 7.3 (6.4-8.9) g/dL Albumin 4.3 (3.2-5.2) g/dL Globulin 3.0 (2-4) g/dL Albumin/Globulin Ratio 1.4 (1-3) Lipase 55 (11.0-82.0) U/L TSH 2.50 (0.34-5.60) mcIU/mL 09/06/17 09/06/17 Range/Units 12:07 12:08 WBC (3.5-10.8) 10^3/ul RBC (4.00-5.40) 10^6/ul Hgb (14.0-18.0) g/dl Hct (42-52) % MCV (80-94) fL MCH (27-31) pg MCHC (31-36) g/dl RDW (10.5-15) % Plt Count (150-450) 10^3/ul MPV (7.4-10.4) um3 Neut % (Auto) (38-83) % Lymph % (Auto) (25-47) % Carson % (Auto) (0-7) % Eos % (Auto) (0-6) % Baso % (Auto) (0-2) % Absolute Neuts (auto) (1.5-7.7) 10^3/ul Absolute Lymphs (auto) (1.0-4.8) 10^3/ul Absolute Monos (auto) (0-0.8) 10^3/ul Absolute Eos (auto) (0-0.6) 10^3/ul Absolute Basos (auto) (0-0.2) 10^3/ul Absolute Nucleated RBC 10^3/ul Nucleated RBC % INR (Anticoag Therapy) 0.99 (0.77-1.02) APTT 33.4 (26.0-36.3) seconds D-Dimer, Quantitative 609 H (Less Than 230) ng/mL Sodium (135-145) mmol/L Potassium (3.5-5.0) mmol/L Chloride (101-111) mmol/L Carbon Dioxide (22-32) mmol/L Anion Gap (2-11) mmol/L BUN (6-24) mg/dL Creatinine (0.67-1.17) mg/dL Est GFR ( Amer) (>60) Est GFR (Non-Af Amer) (>60) BUN/Creatinine Ratio (8-20) Glucose (70-100) mg/dL Lactic Acid 2.2 H* (0.5-2.0) mmol/L Calcium (8.6-10.3) mg/dL Magnesium (1.9-2.7) mg/dL Total Bilirubin (0.2-1.0) mg/dL AST (13-39) U/L ALT (7-52) U/L Alkaline Phosphatase (34-104) U/L Total Creatine Kinase (10-223) U/L CK-MB (CK-2) (0.6-6.3) ng/mL Troponin I (<0.04) ng/mL C-Reactive Protein (<8.01) mg/L B-Natriuretic Peptide ( - 100) pg/mL Total Protein (6.4-8.9) g/dL Albumin (3.2-5.2) g/dL Globulin (2-4) g/dL Albumin/Globulin Ratio (1-3) Lipase (11.0-82.0) U/L TSH (0.34-5.60) mcIU/mL Result Diagrams: 09/06/17 12:07 09/06/17 12:07 Lab Statement: Any lab studies that have been ordered have been reviewed, and results considered in the medical decision making process. - Radiology chest XR Radiology Interpretation Completed By: Radiologist - 1. POSTSURGICAL CHANGES, NO EVIDENCE FOR ACUTE FINDING. 2. CALCIFIED PLEURAL PLAQUES SUGGESTIVE OF PRIOR ASBESTOS EXPOSURE. Dr. Soto has reviewed this radiology report. - CT C spine CT Interpretation Completed By: Radiologist - DEGENERATIVE DISC DISEASE AND OSTEOARTHRITIS, WITHOUT SIGNIFICANT OSSEOUS NEURAL FORAMINAL NARROWING OR CENTRAL CANAL STENOSIS. Dr. Soto has reviewed this report. CT T spine CT Interpretation Completed By: Radiologist - 1. MILD COMPRESSION FRACTURE OF THE SUPERIOR ENDPLATE OF THE T1 VERTEBRAL BODY, AGE INDETERMINATE. 2. MILD TO MODERATE DIFFUSE DEGENERATIVE DISC DISEASE. 3. TRACE RIGHT PLEURAL EFFUSION. 4. BILATERAL PLEURAL PLAQUES SUGGESTIVE OF PRIOR ASBESTOS EXPOSURE. Dr. Soto has reviewed this report. CTA chest/thorax CT Interpretation Completed By: Radiologist - NO CT EVIDENCE OF ACUTE PULMONARY EMBOLIC DISEASE. 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 CHOLELITHIASIS Dr. Soto has reviewed this report. - Ultrasound No standard instances Ultrasound Interpretation Completed By: Radiologist - Venous Doppler: No evidence of DVT is identified Dr. Soto has reviewed this report. - EKG 1105 Cardiac Rate: NL - 75 EKG Rhythm: Sinus Rhythm ST Segment: Non-Specific - borderline T-wave abnormality Ectopy: None EKG Interpretation: Prolonged SC interval @ 357, borderline T-wave abnormality Re-Evaluation - Re-Evaluation First Eval Re-Evaluation Time: 15:53 Change: Unchanged Comment: He's doing fine, no change, discussed discharge. Back Pain Course/Dx - Course Course Of Treatment: Medications reviewed. Allergies noted. DISCUSSED RESULTS WITH THE PATIENT AND HIS . NO ANTERIOR CHEST PAIN. PAIN HAS BEEN PRESENT FOR DAYS THEREFORE, NO REPEAT TROPONIN. PATIENT HAS TRAMADOL AT HOME WHICH HE PLANS TO USE FOR PAIN. F/U PMD; RETURN IF WORSE. - Diagnoses Provider Diagnoses: Thoracic compression fracture, Thoracic back pain Discharge - Sign-Out/Discharge Documenting (check all that apply): Discharge/Admit/Transfer - Discharge Plan Condition: Stable Disposition: HOME Patient Education Materials: Vertebral Compression Fracture (ED), Thoracic Pain (ED) Referrals: Nehemias Hopkins MD [Primary Care Provider] - Additional Instructions: FOLLOW UP WITH YOUR DOCTOR. RETURN TO THE EMERGENCY DEPARTMENT FOR ANY WORSENING OF YOUR CONDITION; CHEST PAIN, SHORTNESS OF BREATH, WEAKNESS, NUMBNESS, PAIN OR QUESTIONS OR CONCERNS. - Billing Disposition and Condition Condition: STABLE Disposition: Home The documentation as recorded by the Jasson whitt Simon accurately reflects the service I personally performed and the decisions made by , Lion Barrientos MD.
== END 2017-09-06 16:23 | disposition home or self-care (01) ==
LOC: ED 10:57
DX: S22.010A Wedge compression fracture of first thoracic vertebra, initial encounter for closed fracture (principal); X58.XXXA Exposure to other specified factors, initial encounter; Y93.H2 Activity, gardening and landscaping; Y92.096 Garden or yard of other non-institutional residence as the place of occurrence of the external cause; M54.5 Low back pain; M54.2 Cervicalgia; R11.0 Nausea; R06.02 Shortness of breath; R60.0 Localized edema; J90 Pleural effusion, not elsewhere classified; E07.9 Disorder of thyroid, unspecified; I10 Essential (primary) hypertension; E78.00 Pure hypercholesterolemia, unspecified; J45.909 Unspecified asthma, uncomplicated; N40.0 Benign prostatic hyperplasia without lower urinary tract symptoms; Z96.653 Presence of artificial knee joint, bilateral; Z95.2 Presence of prosthetic heart valve; Z21 Asymptomatic human immunodeficiency virus [HIV] infection status
CPT/HCPCS: 36415; 71045; 71275; 72125; 72128; 80053; 82550; 82553; 83605; 83690; 83735; 83880; 84443; 84484; 85025; 85379; 85610; 85730; 86140; 93005; 96360; 99283; Q9967

== ENCOUNTER 2017-10-05 10:41 | Emergency (ER) | payer MEDICARE ==
[2017-10-05 10:48] VITALS: BP 145/58
--- NOTE | 2017-10-05 11:15 | UC ---
Skin Complaint HPI - HPI Summary HPI Summary: Pt is a 87 y/o M p/w concerns of healing wound located on RLE. Wound onset ~1 week ago. Denies: Fever. Pt initially treated wound with neosporin but stopped treatment after wound would not subside. Notes he felt something down on RLE and just pulled resulting in the opening of the wound. Pt presents to the ED because he was unsure how to treat wound.Denies Hx: CHF, MRSA, DM. - History of Current Complaint Chief Complaint: UCSkin Time Seen by Provider: 10/05/17 11:03 Stated Complaint: BLISTER ON LEG Hx Obtained From: Patient Onset/Duration: Lasting Weeks - ~1 week Skin Exposure Onset/Duration: Weeks Ago Current Severity: None Pain Intensity: 0 Pain Scale Used: 0-10 Numeric Location: Discrete - RLE - Allergy/Home Medications Allergies/Adverse Reactions: Allergies Allergy/AdvReac Type Severity Reaction Status Date / Time No Known Allergies Allergy Verified 10/05/17 10:48 Review of Systems Constitutional: Negative - fever Skin: Other - Scabbed wound All Other Systems Reviewed And Are Negative: Yes PMH/Surg Hx/FS Hx/Imm Hx Other Endocrine History: Neg: DM Cardiovascular History: Hypertension Other Cardiovascular History: Neg: CAD - Surgical History Surgical History: None Surgery Procedure, Year, and Place: Knee Replacement bilat. Aortic valve replacement 2016 - [facility] TRIFECTA TISSUE VALVE MODEL # TF21A (@ [facility])- CONDITIONAL 5 UP TO 3T FOR MRIs ( PT KNOWNS TO BRING CARD). CATARACT - Family History Known Family History: Positive: Hypertension Negative: Cardiac Disease, Diabetes - Social History Occupation: Retired Lives: With Family Alcohol Use: None Substance Use Type: None Smoking Status (MU): Never Smoked Tobacco - Immunization History Most Recent Tetanus Shot: unk Physical Exam - Summary Physical Exam Summary: General: well-appearing, no pain distress Skin: warm, color reflects adequate perfusion, dry, RLE 2 cm scabbed area w drainage, surrounding erythema, several other blisters lower leg Head: normal Eyes: EOMI, TEENA ENT: normal Neck: supple, nontender Respiratory: CTA, breath sounds present Cardiovascular: RRR Abdomen: soft, nontender Bowel: present Musculoskeletal: strength/ROM intact, Bilateral pedal edema Neurological: sensory/motor intact, A&O x3 Psychological: affect/mood appropriate Triage Information Reviewed: Yes Vital Signs: Initial Vital Signs Temp 99 F 10/05/17 10:44 Pulse 76 10/05/17 10:44 Resp 17 10/05/17 10:44 BP 145/58 10/05/17 10:44 Pulse Ox 95 10/05/17 10:44 Vital Signs Reviewed: Yes Course/Dx - Course Course Of Treatment: RX KEFLEX. F/U PMD; RECHECK SOONER IF WORSE. - Diagnoses Provider Diagnoses: RIGHT LEG CELLULITIS Discharge - Sign-Out/Discharge Documenting (check all that apply): Patient Departure - Discharge Plan Condition: Stable Disposition: HOME Prescriptions: Cephalexin CAP* [Keflex CAP*] 500 mg PO QID #40 cap Patient Education Materials: Cellulitis (ED) Referrals: Nehemias Hopkins MD [Primary Care Provider] - Additional Instructions: FOLLOW UP WITH YOUR DOCTOR. GET RECHECKED FOR ANY WORSENING OF YOUR CONDITION; FEVER, PAIN, SPREAD OF INFECTION OR QUESTIONS OR CONCERNS. - Billing Disposition and Condition Condition: STABLE Disposition: Home
== END 2017-10-05 11:26 | disposition home or self-care (01) ==
LOC: UCEAST 10:41
DX: L03.115 Cellulitis of right lower limb (principal); I10 Essential (primary) hypertension
CPT/HCPCS: 99212; G0463

== ENCOUNTER 2017-12-13 11:31 | Emergency (ER) | payer MEDICARE ==
--- OUTSIDE RECORDS SUMMARY | 2017-12-13 11:36 | XMS REPORT ---
:1930 External Reference #:[id number] Author Organization [employer] Address [address] [facility] [place] [address] Phone [phone] Care Team Providers Name Role Phone Nehemias Hopkins MD Care Team Information Joint Runner Unavailable Nehemias Hopkins MD Primary Care Physician Unavailable Payers Type Date Identification Numbers Payment Provider Subscriber Medicare Primary Effective: Policy Number: Medicare Eduard Zimmerman 1996 [id number] PayID: [id number] [facility] [address] [place] [address] Problems Date Description Provider Status Onset: 04/04/2013 Aortic valve disorder Anish Butler M.D. Active Onset: 04/04/2013 Benign essential hypertension Anish Butler M.D. Active Onset: 04/04/2013 Premature beats Anish Bulter M.D. Active Onset: 04/04/2015 Essential hypertension Anish Butler M.D. Active Onset: 07/02/2015 Periprosthetic osteolysis Kassandra Michael M.D. Active Family History Date Family Member(s) Problem(s) Comments General Cancer Father due to [place] () Mother due to Unknown Causes () First Brother Cancer, Pancreatic Second Brother Cancer bones First Sister Cancer, Lung Second Sister Heart Disease Second Sister Kidney Disease Social History Type Date Description Comments Marital Status Lives With Spouse Occupation Retired Cigarette Use Never Smoked Cigarettes ETOH Use Denies alcohol use Recreational Drug Use Denies Drug Use Smoking Patient has never smoked Daily Caffeine Consumes on average 4 cups of decaff 2-4 cups daily coffee per day Exercise Type/Frequency Exercises rarely weather permitting Currently Active Patient is currently not sexually active Allergies, Adverse Reactions, Alerts Date Description Reaction Status Severity Comments 05/01/2009 NKDA active Medications Medication Date Status Form Strength Qnty SIG Indications Ordering Provider Ryan العلي 07/30 Active 1unit Ryan sehyla M25.562 s with medial Alec, post; left M.D. ankle Ultracet 06/09 Active Tablets 37.5-325m 30tab 1 tab by Cat s mouth every Regalado, 4-6 hours as M.D. needed pain Metoprolol Active 50mg 90uni 1 po bid Stevanovic Succinate ER Nehemias tenorio M.D. Amlodipine Active Tablets 10mg 90tab 1 po qd Stevanovic Besylate s Nehemias M.D. Lisinopril Active Tablets 20mg 1 po qd Unknown / Finasteride Active Tablets 5mg 30tab 1 po qd Unknown / s Flomax Active Capsules 0.4mg 10cap 1 po qd / s Irbesartan/Hydr Active Tablets 150-12.5m 90tab 1 po qd Unknown ochlorothiazide s Lipitor Active Tablets 10mg 1 by mouth Unknown / every night at bedtime Vitamin B-12 Active Tablets 1000mcg 1 by mouth Unknown / Sub every day Mikael Aspirin Active Tablets 325mg 1 tablet po Unknown / DR daily Tramadol HCL Active Tablets 50mg take 1 tablet Unknown /0000 by mouth every 8 hours if needed for pain maximum daily Meloxicam Active Tablets 7.5mg take one tab twice daily Tramadol HCL 07/01 Hx Tablets 50mg 60tab 1 tablet by M25.562 s mouth every 6 Alec, - hours as M.D. 07/20 needed pain Chlorothiazide 07/03 Hx Tablets 500mg 90tab 1 po qd Nehemias viera - M.D. 03/22 Diovan Hx Tablets 40mg 90tab 1 po qd Stevano Nehemias viera - M.DButch 03/22 Diovan 00/ Hx Tablets 160mg 90tab 1 po qd Stevanovic /0000 Nehemias viera - M.D. 03/29 Lipitor Hx Tablets 20mg 90tab one tab po Stevanovic /0000 s Nehemias mojica - M.D. 04/17 Niaspan Hx Tablets 500mg 90tab 1 tab qday Stevanovic /0000 ER Nehemias viera - M.D. 04/28 Aspir-81 Hx Tablets 81mg 1 po qd Stevanovic /0000 Nehemias CHUN - M.D. 07/30 Cyanocobalamin 00 Hx intramuscular Unknown /0000 monthly - 04/04 Amiodarone HCL 00 Hx Tablets 200mg 1 by mouth Unknown /0000 every day Am - for 21days 08/12 Furosemide 00 Hx Tablets 40mg 1 by mouth Unknown /0000 every day for - 7 days 07/30 Potassium 00 Hx 20Meq 1 tablet po Unknown Chloride /0000 daily for 7 - days 07/30 Niacin 00 Hx Tablets 500mg 1 by mouth Unknown /0000 daily - 06/07 Vital Signs Date Vital Result Comment 12/02/2017 Height 67 inches 5'7" Weight 196.00 lb Heart Rate 64 /min BP Systolic Sitting 138 mmHg lue sittingdown regular cuff BP Diastolic Sitting 56 mmHg lue sittingdown regular cuff BP Systolic Standing 130 mmHg lue standing up regular cuff BP Diastolic Standing 60 mmHg lue standing up regular cuff Respiratory Rate 16 /min BMI (Body Mass Index) 30.7 kg/m2 11/24/2016 Height 67 inches 5'7" Weight 203.00 lb with shoes Heart Rate 70 /min BP Systolic Sitting 130 mmHg Rue reg cuff BP Diastolic Sitting 70 mmHg Rue reg cuff BP Systolic Standing 128 mmHg Rue reg cuff BP Diastolic Standing 66 mmHg Rue reg cuff Respiratory Rate 17 /min BMI (Body Mass Index) 31.8 kg/m2 Ejection Fraction 65-70% 11/10/2015-echo 11/03/2016 Height 67 inches 5'7" Weight 201.00 lb Heart Rate 66 /min BP Systolic 138 mmHg BP Diastolic 63 mmHg Body Temperature 97.5 F Pain Level 2 BMI (Body Mass Index) 31.5 kg/m2 09/14/2016 Height 66 inches 5'6" Weight 200.00 lb BP Systolic 141 mmHg BP Diastolic 64 mmHg Respiratory Rate 14 /min Pain Level 5 BMI (Body Mass Index) 32.3 kg/m2 07/30/2016 Height 66 inches 5'6" Weight 200.00 lb Heart Rate 92 /min BP Systolic 130 mmHg BP Diastolic 95 mmHg Body Temperature 98.6 F Pain Level 0 BMI (Body Mass Index) 32.3 kg/m2 07/29/2016 Height 66 inches 5'6" Weight 205.00 lb Heart Rate 78 /min BP Systolic 119 mmHg BP Diastolic 58 mmHg Body Temperature 96.7 F BMI (Body Mass Index) 33.1 kg/m2 07/08/2016 Height 67 inches 5'7" Weight 203.00 lb Heart Rate 88 /min Respiratory Rate 16 /min Body Temperature 96.8 F Pain Level 0 BMI (Body Mass Index) 31.8 kg/m2 06/16/2016 Height 67 inches 5'7" Weight 203.00 lb no shoes Heart Rate 68 /min BP Systolic Sitting 142 mmHg Rue reg cuff BP Diastolic Sitting 70 mmHg Rue reg cuff BP Systolic Standing 136 mmHg Rue reg cuff BP Diastolic Standing 70 mmHg Rue reg cuff Respiratory Rate 16 /min BMI (Body Mass Index) 31.8 kg/m2 Ejection Fraction 65-70% 11/10/2015-echo 06/09/2016 Height 67 inches 5'7" Weight 206.00 lb Heart Rate 75 /min BP Systolic 164 mmHg BP Diastolic 75 mmHg Respiratory Rate 16 /min BMI (Body Mass Index) 32.3 kg/m2 11/13/2015 Height 67 inches 5'7" Weight 204.00 lb w/ shoes Heart Rate 70 /min reg BP Systolic Sitting 140 mmHg Lue, reg cuff BP Diastolic Sitting 74 mmHg Lue, reg cuff BP Systolic Standing 136 mmHg Lue BP Diastolic Standing 74 mmHg Lue Respiratory Rate 16 /min BMI (Body Mass Index) 31.9 kg/m2 Ejection Fraction 65-70% as of 11/10/15 echo 10/20/2015 Height 67 inches 5'7" Weight 200.00 lb Pain Level 0 BMI (Body Mass Index) 31.3 kg/m2 09/08/2015 Height 67 inches 5'7" Weight 200.00 lb Pain Level 0 BMI (Body Mass Index) 31.3 kg/m2 08/01/2015 Height 67 inches 5'7" Weight 200.00 lb with shoes Heart Rate 80 /min BP Systolic Sitting 140 mmHg Ra reg cuff BP Diastolic Sitting 72 mmHg Ra reg cuff BP Systolic Standing 138 mmHg Ra reg cuff BP Diastolic Standing 64 mmHg Ra reg cuff Respiratory Rate 18 /min BMI (Body Mass Index) 31.3 kg/m2 Ejection Fraction 65% date 07/17/15 07/02/2015 Height 67 inches 5'7" Weight 200.00 lb Heart Rate 72 /min BP Systolic Sitting 140 mmHg BP Diastolic Sitting 82 mmHg Respiratory Rate 16 /min Pain Level 10 BMI (Body Mass Index) 31.3 kg/m2 06/27/2015 Height 66 inches 5'6" Weight 201.00 lb w/ shoes Heart Rate 70 /min reg BP Systolic Sitting 146 mmHg Lue, reg cuff BP Diastolic Sitting 86 mmHg Lue, reg cuff BP Systolic Standing 136 mmHg Lue BP Diastolic Standing 86 mmHg Lue Respiratory Rate 18 /min BMI (Body Mass Index) 32.4 kg/m2 Ejection Fraction 60-65% As of 02/24/15 echo 05/06/2015 Height 66 inches 5'6" Weight 200.00 lb Heart Rate 74 /min BP Systolic Sitting 166 mmHg right arm, reg cuff BP Diastolic Sitting 72 mmHg right arm, reg cuff BP Systolic Standing 136 mmHg right arm, reg cuff BP Diastolic Standing 68 mmHg right arm, reg cuff Respiratory Rate 20 /min BMI (Body Mass Index) 32.3 kg/m2 Ejection Fraction 50-55% 02/24/15 04/04/2015 Height 66 inches 5'6" Weight 203.00 lb no shoes Heart Rate 74 /min BP Systolic Sitting 158 mmHg BP Diastolic Sitting 82 mmHg BP Systolic Standing 158 mmHg BP Diastolic Standing 78 mmHg Respiratory Rate 16 /min BMI (Body Mass Index) 32.8 kg/m2 Ejection Fraction 60-65% 02/24/15 04/18/2014 Height 66 inches 5'6" Weight 202.00 lb with shoes Heart Rate 68 /min BP Systolic Sitting 164 mmHg LA, reg cuff BP Diastolic Sitting 80 mmHg LA, reg cuff BP Systolic Standing 156 mmHg LA BP Diastolic Standing 82 mmHg LA Respiratory Rate 16 /min BMI (Body Mass Index) 32.6 kg/m2 04/04/2013 Height 66 inches 5'6" Weight 206.00 lb Heart Rate 74 /min BP Systolic Sitting 172 mmHg LA reg cuff BP Diastolic Sitting 70 mmHg LA reg cuff BP Systolic Standing 176 mmHg LA BP Diastolic Standing 78 mmHg LA Respiratory Rate 18 /min BMI (Body Mass Index) 33.2 kg/m2 08/19/2009 Weight 210.75 lb Heart Rate 88 /min BP Systolic 150 mmHg BP Diastolic 86 mmHg Respiratory Rate 12 /min 08/01/2009 Weight 207.00 lb Heart Rate 82 /min BP Systolic Sitting 178 mmHg BP Diastolic Sitting 78 mmHg 05/01/2009 Height 67.5 inches 5'7.50" Weight 210.00 lb Heart Rate 80 /min BP Systolic Sitting 190 mmHg BP Diastolic Sitting 90 mmHg BMI (Body Mass Index) 32.4 kg/m2 Results Test Date Test Result H/L Range Note Basic Metabolic Panel 04/22/2015 Sodium 138 mmol/L 133-145 Potassium 3.9 mmol/L 3.5-5.0 Chloride 104 mmol/L 101-111 Co2 Carbon Dioxide 28 mmol/L 22-32 Anion Gap 6 mmol/L 2-11 Glucose 127 mg/dL High 70-100 Blood Urea Nitrogen 15 mg/dL 6-24 Creatinine 0.87 mg/dL 0.67-1.17 BUN/Creatinine Ratio 17.2 8-20 Calcium 9.1 mg/dL 8.6-10.3 Egfr Non- 83.4 >60 Egfr 107.3 >60 1 Inr/Protime 04/22/2015 Inr 0.95 0.89-1.11 CBC Auto Diff 04/22/2015 White Blood Count 7.7 10^3/uL 3.5-10.8 Red Blood Count 4.33 10^6/uL 4.0-5.4 Hemoglobin 13.2 g/dL Low 14.0-18.0 Hematocrit 39 % Low 42-52 Mean Corpuscular Volume 89 fL 80-94 Mean Corpuscular Hemoglobin 30 pg 27-31 Mean Corpuscular HGB Conc 34 g/dL 31-36 Red Cell Distribution Width 14 % 10.5-15 Platelet Count 185 10^3/uL 150-450 Mean Platelet Volume 9 um3 7.4-10.4 Abs Neutrophils 5.8 10^3/uL 1.5-7.7 Abs Lymphocytes 1.0 10^3/uL 1.0-4.8 Abs Monocytes 0.7 10^3/uL 0-0.8 Abs Eosinophils 0.1 10^3/uL 0-0.6 Abs Basophils 0.1 10^3/uL 0-0.2 Abs Nucleated RBC 0.01 10^3/uL Granulocyte % 75.5 % 38-83 Lymphocyte % 13.0 % Low 25-47 Monocyte % 8.8 % 1-9 Eosinophil % 1.7 % 0-6 Basophil % 1.0 % 0-2 Nucleated Red Blood Cells % 0.1 Pre Cath Panel 04/22/2015 Partial Thrombo Time PTT 32.7 seconds 26.0- 36.3 2 Basic Metabolic Panel 07/10/2009 Sodium 142 mmol/L 135-145 Potassium 4.1 mmol/L 3.5-5.0 Chloride 105 mmol/L 101-111 Co2 (Carbon Dioxide) 30.0 mmol/L 22-32 Anion Gap 7.0 mmol/L 2-11 3 Glucose 130 mg/dL High 70-100 4 BUN 15 mg/dL 6-24 Creatinine 0.80 mg/dL 0.50-1.40 One Over Creatinine 1.20 BUN/Creatinine Ratio 18.8 8-20 Calcium 9.4 mg/dL 8.1-9.9 5 eGFR Non- 99.1 > 60 eGFR 119.9 > 60 6 Laboratory test finding 06/19/2009 PSA Screening 0.40 NG/ML 0-4 7 Lipid Profile (Trig/Chol/HDL) 06/19/2009 Triglyceride 227 mg/dL High 40- 200 Cholesterol 147 mg/dL Less Than 200 8 High Density Lipoprotein 41 mg/dL 40-60 9 Cholesterol/HDL Ratio 3.59 AVERAGE 1-4.97 Low Density Lipoprotein 61 mg/dL Less Than 100 10 Comp Metabolic Panel 06/19/2009 Sodium 138 mmol/L 135-145 Potassium 3.7 mmol/L 3.5-5.0 Chloride 103 mmol/L 101-111 Co2 (Carbon Dioxide) 29.0 mmol/L 22-32 Anion Gap 6.0 mmol/L 2-11 11 Glucose 128 mg/dL High 70-100 12 BUN 13 mg/dL 6-24 Creatinine 0.80 mg/dL 0.50-1.40 One Over Creatinine 1.20 BUN/Creatinine Ratio 16.3 8-20 Calcium 9.3 mg/dL 8.1-9.9 13 Total Protein 6.9 GM/DL 6.2-8.1 Albumin 4.0 GM/DL 3.2-5.2 Globulin 2.9 GM/DL 2-4 Albumin/Globulin Ratio 1.4 1-3 Bilirubin Total 1.1 mg/dL 0.4-1.5 14 Alkaline Phosphatase 69 U/L 39-117 Alt (SGPT) 18 U/L 17-63 Ast (Sgot) 19 U/L 12-42 eGFR Non- 99.1 > 60 eGFR 119.9 > 60 15 CBC With Electronic Diff 06/19/2009 White Blood Count 5.7 CUMM 4.8-10.8 Red Cell Count 4.38 CUMM Low 4.6-6.2 Hemoglobin 14.1 g/dL 14.0-18.0 Hematocrit 40 % Low 42-52 Mean Corpuscular Volume 91 um3 80-94 Mean Corpuscular Hemoglob 32 pg High 27-31 Mean Corpuscular HGB Cone 35 g/dL 32-36 Redcell Distribution WDTH 13 % 10.5-15 Platelet Count 193 CUMM 150-450 Mean Platelet Volume 8.3 um3 7.4-10.4 Gran % 57.0 % 38-83 Lymph % 29.1 % 25-47 Mononuclear % 11.1 % High 1-9 Eosinophil % 2.4 % 0-6 Basophil % 0.4 % 0-2 Abs Lymphs 1.7 1.0-4.8 Abs Mononuclear 0.6 0-0.8 Absolute Neutrophil Count 3.3 1.5-7.7 Abs Eosinophils 0.1 0-0.6 Abs Basophils 0 0-0.2 1 Because ethnic data is not always readily available, this report includes an eGFR for both -Americans and non- Americans. The National Kidney Disease Education Program (NKDEP) does not endorse the use of the MDRD equation for patients that are not between the ages of 18 and 70, are , have extremes of body size, muscle mass, or nutritional status, or are non- or non-. According to the National Kidney Foundation, irrespective of diagnosis, the stage of the disease is based on the level of kidney function: Stage Description GFR(mL/min/1.73 m(2)) 1 Kidney damage with normal or decreased GFR 90 2 Kidney damage with mild decrease in GFR 60-89 3 Moderate decrease in GFR 30-59 4 Severe decrease in GFR 15-29 5 Kidney failure <15 (or dialysis) 2 soon 3 Anion gap measurement may be of limited value in the presence of any alkalosis, especially in a combined acid base disorder. . 4 Note change in reference range as of 11/09/07. The change was based on recommendations from the [place] [employer]. 5 Please note change in reference range effective 07 . 6 Because ethnic data is not always readily available, this report includes an eGFR for both -Americans and non- Americans. The National Kidney Disease Education Program (NKDEP) does not endorse the use of the MDRD equation for patients that are not between the ages of 18 and 70, are , have extremes of body size, muscle mass, or nutritional status, or are non- or non-. According to the National Kidney Foundation, irrespective of diagnosis, the stage of the disease is based on the level of kidney function: Stage Description GFR(mL/min/1.73 m(2)) 1 Kidney damage with normal or decreased GFR 90 2 Kidney damage with mild decrease in GFR 60-89 3 Moderate decrease in GFR 30-59 4 Severe decrease in GFR 15-29 5 Kidney failure <15 (or dialysis) 7 * SERUM LEVELS OF PSA MEASURED USING THE MAT [employer] Access ACCESS HYBRITECH IMMUNOASSAY SHOULD NOT BE INTERPRETED ABSOLUTE EVIDENCE OF THE PRESENCE OR ABSENCE OF DISEASE. THE PSA VALUE SHOULD BE USED IN CONJUNCTION WITH OTHER PERTINENT CLINICAL DIAGNOSTIC PROCEDURES. A PSA value in the range of 0.1 to 0.6 ng/ml is indeterminate if being used as an indicator of recurrent or residual disease. . 8 CHOLESTEROL INTERPRETATION: Desirable: Less than 200 MG/DL Borderline-High Risk: 200-239 MG/DL High-Risk: 240 MG/DL and over 9 HDL INTERPRETATION: Undesirable: High Risk: Less than 40 MG/DL Desirable: Low Risk: Greater than 60 MG/DL 10 LDL INTERPRETATION: Low Risk Optimal Level: LDL Less than 100 MG/DL Near or Above Optimal: LDL 100-129 MG/DL Borderline High Risk: LDL 130-159 MG/DL High Risk: LDL 160-189 MG/DL Very High Risk: LDL Greater than 189 MG/DL 11 Anion gap measurement may be of limited value in the presence of any alkalosis, especially in a combined acid base disorder. . 12 Note change in reference range as of 11/09/07. The change was based on recommendations from the [place] [employer]. 13 Please note change in reference range effective 07 . 14 A metabolite of Naproxen, O-desmethylnaproxen, has been shown to interfere with the Jendrassik-Antonina method for measuring total bilirubin. Samples from patients who have taken Naproxen have shown spurious elevation in total bilirubin levels. 15 Because ethnic data is not always readily available, this report includes an eGFR for both -Americans and non- Americans. The National Kidney Disease Education Program (NKDEP) does not endorse the use of the MDRD equation for patients that are not between the ages of 18 and 70, are , have extremes of body size, muscle mass, or nutritional status, or are non- or non-. According to the National Kidney Foundation, irrespective of diagnosis, the stage of the disease is based on the level of kidney function: Stage Description GFR(mL/min/1.73 m(2)) 1 Kidney damage with normal or decreased GFR 90 2 Kidney damage with mild decrease in GFR 60-89 3 Moderate decrease in GFR 30-59 4 Severe decrease in GFR 15-29 5 Kidney failure <15 (or dialysis) Procedures Date CPT Code Description Status 12/02/2017 15278 EKG Tracing & Interpretation Completed 07/07/2017 96096 ECHO Transthoracic, Real-Time 2D With Doppler And Color Completed Flow 07/07/2017 54233 ECHO Transthoracic, Real-Time 2D With Doppler And Color Completed Flow 11/24/2016 93152 EKG Tracing & Interpretation Completed 06/25/2016 76338 Carpal Tunnel Release Completed 06/25/2016 13674 Carpal Tunnel Release Completed 06/16/2016 26780 EKG Tracing & Interpretation Completed 11/10/2015 45634 ECHO Transthoracic, Real-Time 2D With Doppler And Color Completed Flow 08/01/2015 25276 EKG Tracing & Interpretation Completed 04/28/2015 71404 RT & lt Cath W/Injx HRT Art&L Ventr Img S&I Completed 02/24/2015 66963 ECHO Transthoracic, Real-Time 2D With Doppler And Color Completed Flow 04/18/2014 82989 EKG Tracing & Interpretation Completed 04/06/2013 90845 ECHO Transthoracic, Real-Time 2D With Doppler And Color Completed Flow 04/04/2013 74520 EKG Tracing & Interpretation Completed 03/09/2013 72376 Holter Monitoring 24 HR New Completed Encounters Type Date Location Provider CPT E/M Dx Office Visit 11/24/2016 [facility] Rich Butler, [address] I35.0 9:00a Internet Sales Director Jasmin.DButch Z95.2 I10 Office Visit 11/03/2016 9:30a [facility] M.D. 87474 M19.072 C.M.AButch T84.053D M76.822 Office Visit 09/14/2016 9:00a [facility] [place], 70444 M19.072 C.MMelchor Christopher Office Visit 07/30/2016 2:15p [facility] M.D. 37146 M25.562 C.M.AButch T84.053A M25.572 Office Visit 06/16/2016 11:15a [facility] Rich Butler, 01335 I35.0 Caleb Christopher Z95.2 I25.10 Z01.810 Office Visit 06/09/2016 11:00a [facility] Cat Regalado, 68453 G56.02 Of C.MMelchor Christopher Office Visit 11/13/2015 10:00a [facility] Rich Butler, 65725 I35.0 Caleb Castellanos.Greg Z95.2 I25.10 Office Visit 10/20/2015 9:30a [facility], 35621 T84.053A C.MMelchor Christopher M25.562 Office Visit 09/08/2015 1:45p [facility] M.D. 23815 T84.053A Of C.M.AButch Office Visit 08/01/2015 1:30p [facility] Rich Butler 26546 I35.0 Caleb Christopher Z95.2 I25.10 Office Visit 07/02/2015 8:30a [facility] M.D. 85685 M25.562 C.M.AButch M25.462 T84.053A Office Visit 06/27/2015 9:00a [facility] Anish Butler, 34875 I35.0 Internet Sales Director M.D. R06.02 Office Visit 05/06/2015 1:15p [facility] Anish Butler, 12334 I35.0 Internet Sales Director AT [facility] M.D. R06.02 I10 Office Visit 04/04/2015 10:15a [facility] Anish Butler, 50115 I35.0 Internet Sales Director M.D. I10 Office Visit 04/18/2014 10:00a [facility] Anish Butler, 24339 424.1 Internet Sales Director M.D. 401.1 Office Visit 04/04/2013 10:45a [facility] Anish Butler, 19177 424.1 Internet Sales Director M.D. 401.1 427.69 Office Visit 08/19/2009 9:40a DO Not Use Internet Sales Director AT [facility], [place], [address] 401.1 [place] M.D. 272.4 389.9 424.1 Office Visit 08/01/2009 2:20p DO Not Use Internet Sales Director AT [facility] [place], [address] 401.1 [place] M.D. 272.4 389.9 424.1 Office Visit 05/01/2009 10:40a DO Not Use Internet Sales Director AT [facility] [place], [address] 401.1 [place] M.D. 272.4 236.4 389.9 Plan of Care 12/02/2017 - Anish Butler M.D.Z95.2 Presence of prosthetic heart valveFollow up:1 yearI25.10 Athscl heart disease of [place] coronary artery w/o ang pctrs
[2017-12-13 11:41] VITALS: BP 180/54
--- NOTE | 2017-12-13 11:52 | UC ---
Hand/Wrist HPI - HPI Summary HPI Summary: right wrist pain x 7 days no know injury , + swelling of the right wrist pain with wrist movement and lifting things with his right hand - History Of Current Complaint Chief Complaint: UCUpperExtremity Stated Complaint: R WRIST COMPLAINT Time Seen by Provider: 12/13/17 11:32 Hx Obtained From: Patient Onset/Duration: Gradual Onset, Lasting Days - 7, Still Present Severity Initially: Moderate Severity Currently: Moderate Pain Intensity: 8 Character Of Pain: Dull, Aching, Stiffness Aggravating Factor(s): Movement, Lifting, Flexion, Extension Alleviating Factor(s): Nothing Associated Signs And Symptoms: Positive: Swelling. Negative: Redness, Bruising , Fever, Weakness, Numbness/Tingling - Allergies/Home Medications Allergies/Adverse Reactions: Allergies Allergy/AdvReac Type Severity Reaction Status Date / Time No Known Allergies Allergy Verified 12/13/17 11:43 PMH/Surg Hx/FS Hx/Imm Hx Cardiovascular History: Cardiac Disease, Hypertension - Surgical History Surgical History: Yes Surgery Procedure, Year, and Place: Knee Replacement bilat. Aortic valve replacement 2016 - [facility] T[facility] MODEL # TF21A (@ [facility])- CONDITIONAL 5 UP TO 3T FOR MRIs ( PT KNOWNS TO BRING CARD). CATARACT - Family History Known Family History: Positive: Hypertension Negative: Cardiac Disease, Diabetes - Social History Alcohol Use: None Substance Use Type: None Smoking Status (MU): Never Smoked Tobacco - Immunization History Most Recent Tetanus Shot: unk Review of Systems Constitutional: Negative Skin: Negative Eyes: Negative ENT: Negative Respiratory: Negative Cardiovascular: Negative Is Patient Immunocompromised?: No All Other Systems Reviewed And Are Negative: Yes Physical Exam Triage Information Reviewed: Yes Appearance: Well-Appearing, No Pain Distress, Well-Nourished Vital Signs: Initial Vital Signs Temp 98 F 12/13/17 11:40 Pulse 75 12/13/17 11:40 Resp 16 12/13/17 11:40 BP 180/54 12/13/17 11:40 Pulse Ox 99 12/13/17 11:40 Vital Signs Reviewed: Yes Eye Exam: Normal Eyes: Positive: Conjunctiva Clear ENT: Positive: Normal ENT inspection, Hearing grossly normal, Pharynx normal Neck: Positive: Supple, Nontender, No Lymphadenopathy Respiratory: Positive: Chest non-tender, Lungs clear, Normal breath sounds Cardiovascular: Positive: RRR, No Murmur, Pulses Normal Bowel Sounds: Positive: Present Musculoskeletal: Positive: Other: - right wrist : no erythema, + swelling, diffuse tenderness, limited ROM on flexion and extension , + ganglion cyst Hand/Wrist Course/Dx - Differential Dx/Diagnosis Provider Diagnoses: ganglion cyst right wrist Discharge - Sign-Out/Discharge Documenting (check all that apply): Patient Departure All imaging exams completed and their final reports reviewed: No Studies - Discharge Plan Condition: Stable Disposition: HOME Patient Education Materials: Ganglion Cysts (ED) Referrals: Nehemias Hopkins MD [Primary Care Provider] - Cat Regalado MD [Medical Doctor] - As Soon As Possible - Billing Disposition and Condition Condition: STABLE Disposition: Home
== END 2017-12-13 12:00 | disposition home or self-care (01) ==
LOC: UCEAST 11:31
DX: M67.431 Ganglion, right wrist (principal); Z96.653 Presence of artificial knee joint, bilateral
CPT/HCPCS: 99211; G0463

== ENCOUNTER 2018-02-05 15:45 | Inpatient (IN) | payer MEDICARE ==
--- OUTSIDE RECORDS SUMMARY | 2018-02-05 15:56 | XMS REPORT ---
:1930 External Reference #:[id number] Author Organization [employer] Address [address] [place] [address] Phone [phone] Care Team Providers Name Role Phone Nehemias Hopkins MD Primary Care Physician Unavailable Payers Type Date Identification Numbers Payment Provider Subscriber Medicare Primary Policy Number: [id number] Medicare Eduard Zimmerman PayID: [id number] [address] [place] [address] Medigap Part B Effective: 1995 Policy Number: Medicare Eduard Zimmerman [id number] Expires: 2017 PayID: [id number] [address] [place] [address] Problems Date Description Provider Status Onset: 04/04/2013 Aortic valve disorder Anish Butler M.D. Active Onset: 04/04/2013 Benign essential hypertension Anish Butler M.D. Active Onset: 04/04/2013 Premature beats Anish Butler M.D. Active Onset: 04/04/2015 Essential hypertension Anish Butler M.D. Active Onset: 07/02/2015 Periprosthetic osteolysis Kassandra Michael M.D. Active Family History Date Family Member(s) Problem(s) Comments General Cancer Father due to MA () Mother due to Unknown Causes () [...] Provider Ryan العلي 07/30 Active 1unit Ryan العلي M25.562 s with medial Alec, post; left M.D. ankle Ultracet 06/09 Active Tablets 37.5-325m 30tab 1 tab by Cat s mouth every Regalado, 4-6 hours as M.D. needed pain Metoprolol Active 50mg 90uni 1 po bid Stevanovic Succinate ER Nehemias tenorio M.D. Amlodipine Active Tablets 10mg 90tab 1 po qd Stevanovic Besylate s Nehemias M.D. Lisinopril Active Tablets 20mg 1 po qd Unknown Finasteride Active Tablets 5mg 30tab 1 po qd Unknown s Flomax Active Capsules 0.4mg 10cap 1 po qd s Irbesartan/Hydr Active Tablets 150-12.5m 90tab 1 po qd Unknown ochlorothiazide s Lipitor Active Tablets 10mg 1 by mouth every night at bedtime Vitamin B-12 Active Tablets 1000mcg 1 by mouth Sub every day Mikael Aspirin Active Tablets 325mg [address] daily Tramadol HCL Active Tablets 50mg [...] Hx Tablets 40mg 90tab 1 po qd Stevanovic /0000 Nehemias viera - M.D. 03/22 Diovan Hx Tablets 160mg 90tab 1 po qd Stevanovic /0000 Nehemias viera - M.D. 03/29 Lipitor Hx Tablets 20mg 90tab one tab po Stevanovic /0000 s qNehemias lennon - M.D. 04/17 Niaspan Hx Tablets 500mg 90tab 1 tab qday Stevanovic /0000 ER Nehemias viera - M.D. 04/28 Aspir-81 Hx Tablets 81mg 1 po qd Stevanovic /0000 Nehemias CHUN - M.D. 07/30 Cyanocobalamin Hx intramuscular Unknown /0000 monthly - 04/04 Amiodarone HCL Hx Tablets 200mg 1 by mouth Unknown /0000 every day Am - for 21days 08/12 Furosemide Hx Tablets 40mg 1 by mouth Unknown /0000 every day for - 7 days 07/30 Potassium Hx 20Meq 1 tablet po Unknown Chloride /0000 daily for 7 - days 07/30 Niacin Hx Tablets 500mg 1 by mouth Unknown /0000 daily - 06/07 Medications Administered in Office Medication Date Status Form Strength Qnty SIG Indications Ordering Provider Depomedrol Administered Injection Cat 40MG 018 Ashwin Regalado Depomedrol Administered Injection Cat 40MG 018 Ashwin Regalado Vital Signs Date Vital Result Comment 01/12/2018 Height 67 inches 5'7" Heart Rate 72 /min BP Systolic Sitting 112 mmHg BP Diastolic Sitting 52 mmHg Respiratory Rate 16 /min Body Temperature 96.7 F 12/15/2017 Height 67 inches 5'7" Weight 195.00 lb Heart Rate 68 /min BP Systolic 128 mmHg BP Diastolic 68 mmHg Respiratory Rate 18 /min Pain Level 8 BMI (Body Mass Index) 30.5 kg/m2 12/02/2017 Height 67 inches 5'7" Weight 196.00 [...] change was based on recommendations from the [employer]. 5 Please note change in [...] SERUM LEVELS OF PSA MEASURED USING THE Yellow[employer] ACCESS HYBRITECH IMMUNOASSAY SHOULD NOT BE INTERPRETED [...] change was based on recommendations from the [place] [employer]. 13 Please note change in [...] dialysis) Procedures Date CPT Code Description Status 12/15/201703011 Inject/Drain Joint/Bursa Intermediate W/O US Completed 12/15/201706879 Inject Tendon Sheath Or Ligament Aponeurosis Eg Plantar Completed Fascia 12/02/2017 69129 EKG Tracing & Interpretation Completed 07/07/2017 79061 ECHO Transthoracic, Real-Time 2D With Doppler And Color Completed Flow 07/07/2017 21207 ECHO Transthoracic, Real-Time 2D With Doppler And Color Completed Flow 11/24/2016 76836 EKG Tracing & Interpretation Completed 06/25/2016 15010 Carpal Tunnel Release Completed 06/25/2016 39227 Carpal Tunnel Release Completed 06/16/2016 06803 EKG Tracing & Interpretation Completed 11/10/2015 60456 ECHO Transthoracic, Real-Time 2D With Doppler And Color Completed Flow 08/01/2015 49681 EKG Tracing & Interpretation Completed 04/28/2015 34362 RT & lt Cath W/Injx HRT Art&L Ventr Img S&I Completed 02/24/2015 19760 ECHO Transthoracic, Real-Time 2D With Doppler And Color Completed Flow 04/18/2014 36106 EKG Tracing & Interpretation Completed 04/06/2013 83161 ECHO Transthoracic, Real-Time 2D With Doppler And Color Completed Flow 04/04/2013 82222 EKG Tracing & Interpretation Completed 03/09/2013 97241 Holter Monitoring 24 HR New Completed Encounters Type Date Location Provider CPT E/M Dx Office Visit 12/15/2017 [facility] Cat Regalado, 30414 M19.031 10:45a Of Neal Christopher M65.841 Office Visit 12/02/2017 10:30a [facility] Anish Butler, 97675 Z95.2 Caleb Chrisotpher I25.10 Office Visit 11/24/2016 9:00a [facility] Anish Butler, 70076 I35.0 Caleb Christopher Z95.2 I10 Office Visit 11/03/2016 9:30a [facility] Kassandra Michael M.D. 70182 M19.072 Dena.MMelchor T84.053D M76.822 Office Visit 09/14/2016 9:00a [facility] Abdulaziz Shelby 38448 M19.072 Neal Christopher Office Visit 07/30/2016 2:15p [facility] Kassandra Michael M.D. 24008 M25.562 C.MMelchor T84.053A M25.572 Office Visit 06/16/2016 11:15a [facility] Rich Butler, 95863 I35.0 Senior Solutions Architect M.D. Z95.2 I25.10 Z01.810 Office Visit 06/09/2016 11:00a [facility] Cat Regalado, 82148 G56.02 Of C.M.Paula Christopher Office Visit 11/13/2015 10:00a [facility] Anish Butler, 62755 I35.0 Senior Solutions Architect M.D. Z95.2 I25.10 Office Visit 10/20/2015 9:30a [facility] Kassandra Michael, 24604 T84.053A C.MMelchor Christopher M25.562 Office Visit 09/08/2015 1:45p [facility] Kassandra Michael M.D. 71021 T84.053A Of C.M.A. Office Visit 08/01/2015 1:30p [facility] Rich LopesButch Butler, 77306 I35.0 Senior Solutions Architect M.DButch Z95.2 I25.10 Office Visit 07/02/2015 8:30a [facility] Kassandra Michael M.D. 59487 M25.562 C.M.A. M25.462 T84.053A Office Visit 06/27/2015 9:00a [facility] Of Anish Butler, 52930 I35.0 Senior Solutions Architect M.D. R06.02 Office Visit 05/06/2015 1:15p [facility] Of Anish Garza Luke, 42392 I35.0 Senior Solutions Architect AT [facility] M.D. R06.02 I10 Office Visit 04/04/2015 10:15a [facility] Of Anish Garza Luke, 76275 I35.0 Senior Solutions Architect M.D. I10 Office Visit 04/18/2014 10:00a [facility] Of Anish Garza Luke, 55433 424.1 Senior Solutions Architect M.D. 401.1 Office Visit 04/04/2013 10:45a [facility] Of Anish LopesButch Butler, 21372 424.1 Senior Solutions Architect M.D. 401.1 427.69 Office Visit 08/19/2009 9:40a DO Not Use Senior Solutions Architect AT [facility], 78315 401.1 [facility] M.D. 272.4 389.9 424.1 Office Visit 08/01/2009 2:20p DO Not Use Senior Solutions Architect AT [facility], 13636 401.1 [facility] M.D. 272.4 389.9 424.1 Office Visit 05/01/2009 10:40a DO Not Use Senior Solutions Architect AT [facility], 51650 401.1 [facility] M.D. 272.4 236.4 389.9 Plan of Care 01/12/2018 - Cat Regalado M.D.M19.031 Primary osteoarthritis, right wristFollow up:Follow up: As [id number] Other synovitis and tenosynovitis, right hand
[2018-02-05] MEDS ORDERED: NS 0.9% 1000 ML* 1,000 ML IV ONE (15:57)
--- NOTE | 2018-02-05 16:11 | ED ---
Neurological HPI - HPI Summary HPI Summary: A 87 y/o male accompanied by family presents to ED c/o generalized weakness. As per triage, "pt had kidney infection last week, pt was on ABX, "stomach was rumbling, rumbling and he felt like hell"; yesterday and today pt is weak, no strength". According to the patient, he has been diagnosis with a kidney infection and was placed on Bactrim. 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 He has been taking Bactrim this past week, however, he stated that he has been feeling sick to his stomach. He continued to say that he "feels like hell". He noted that he is not in any pain, however he feels sore and does not feel right/bloated. Also, he has been passing gas lately but not today. He denies any diarrhea as he has had difficultly going to the bathroom. He went to the bathroom this AM and yesterday AM, however, up until then it was 9 days before goig to the bathroom. He stated that when he felt like trying to get out of the recliner, he thinks he propels himself enough to get up, but he ends of going back. Denies any pain or blood in urine. In terms of urine output, the patient noted he has been going less than usual as he usually drinks 3 - 16 oz bottles of water. He denies any chest pain, SOB and fever. He continued to state that he feels fairly good. Patient uses cane at home. - History of Current Complaint Chief Complaint: EDWeakness Stated Complaint: WEAKNESS, Time Seen by Provider: 02/05/18 15:52 Hx Obtained From: Patient Onset/Duration: Sudden Onset, Started days ago, Still Present Timing: Constant Current Severity: None Pain Intensity: 0 Pain Scale Used: 0-10 Numeric Character: Weak Aggravating: Nothing Alleviating: Nothing Associated Signs and Symptoms: Positive: Nothing - Allergy/Home Medications Allergies/Adverse Reactions: Allergies Allergy/AdvReac Type Severity Reaction Status Date / Time No Known Allergies Allergy Verified 12/13/17 11:43 PMH/Surg Hx/FS Hx/Imm Hx Endocrine/Hematology History: Denies: Hx Diabetes, Hx Thyroid Disease Cardiovascular History: Reports: Hx Hypertension, Hx Valvular Heart Disease - AORTIC VALVE REPLACEMENT 2016, Other Cardiovascular Problems/Disorders - HIGH CHOLESTEROL Denies: Hx Pacemaker/ICD Respiratory History: Denies: Hx Asthma, Hx Chronic Obstructive Pulmonary Disease (COPD) GI History: Denies: Hx Ulcer History: Reports: Other Problems/Disorders - ENLARGED PROSTATE Denies: Hx Renal Disease Musculoskeletal History: Reports: Hx Arthritis, Hx Back Problems Sensory History: Reports: Hx Cataracts - 12/09, 12/16, Hx Contacts or Glasses Denies: Hx Hearing Aid Opthamlomology History: Reports: Hx Cataracts - 12/09, 12/16, Hx Contacts or Glasses Neurological History: Reports: Hx Nerve Disease - carpal tunnel left hand Psychiatric History: Denies: Hx Panic Disorder - Surgical History Surgery Procedure, Year, and Place: Knee Replacement bilat. Aortic valve replacement 2016 - [facility] TISS[employer] VALVE MODEL # TF21A (@ [facility])- CONDITIONAL 5 UP TO 3T FOR MRIs ( PT KNOWNS TO BRING CARD). CATARACT Hx Anesthesia Reactions: No - Immunization History Date of Influenza Vaccine: 10/2016 Infectious Disease History: No Infectious Disease History: Denies: Hx Hepatitis, Hx Human Immunodeficiency Virus (HIV), Traveled Outside the [place] in Last 30 Days - Family History Known Family History: Positive: Hypertension Negative: Cardiac Disease, Diabetes - Social History Alcohol Use: None Hx Substance Use: No Substance Use Type: Reports: None Hx Tobacco Use: Yes Smoking Status (MU): Never Smoked Tobacco Review of Systems Negative: Fever Negative: Chest Pain Negative: Shortness Of Breath Positive: Other - POSITIVE: Bloating, passing gas Negative: hematuria, pain Positive: Weakness - Generalized All Other Systems Reviewed And Are Negative: Yes Physical Exam - Summary Physical Exam Summary: VITAL SIGNS: Reviewed. GENERAL: Patient is a well-developed and nourished male who is lying comfortable in the stretcher. Patient is not in any acute respiratory distress. Normal exam. HEAD AND FACE: No signs of trauma. No ecchymosis, hematomas or skull depressions. No sinus tenderness. EYES: PERRLA, EOMI x 2, No injected conjunctiva, no nystagmus. EARS: Hearing grossly intact. Ear canals and tympanic membranes are within normal limits. MOUTH: Oropharynx within normal limits. NECK: Supple, trachea is midline, no adenopathy, no JVD, no carotid bruit, no c- spine tenderness, neck with full ROM. CHEST: Symmetric, no tenderness at palpation LUNGS: Clear to auscultation bilaterally. No wheezing or crackles. CVS: Regular rate and rhythm, S1 and S2 present, no murmurs or gallops appreciated. ABDOMEN: Soft, non-tender. No signs of distention. No rebound no guarding, and no masses palpated. Bowel sounds are normal. EXTREMITIES: FROM in all major joints, no edema, no cyanosis or clubbing. NEURO: Alert and oriented x 3. No acute neurological deficits. Speech is normal and follows commands. SKIN: Dry and warm Triage Information Reviewed: Yes Vital Signs On Initial Exam: Initial Vitals Temp Pulse Resp BP Pulse Ox 99.8 F 73 16 142/59 95 02/05/18 15:47 02/05/18 15:47 02/05/18 15:47 02/05/18 15:47 02/05/18 15:47 Vital Signs Reviewed: Yes Diagnostics - Vital Signs Vital Signs Temp Pulse Resp BP Pulse Ox 02/05/18 15:47 99.8 F 73 16 142/59 95 - Laboratory Result Diagrams: 02/05/18 16:03 02/05/18 16:03 Lab Statement: Any lab studies that have been ordered have been reviewed, and results considered in the medical decision making process. - Radiology ABDOMEN XR Radiology Interpretation Completed By: Radiologist - No radiographic evidence for acute abdominal pelvic pathology. ED PHYSICIAN REVIEWED THIS RADIOLOGY REPORT. 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 No acute cardiopulmonary process evident. ED PHYSICIAN REVIEWED THIS RADIOLOGY REPORT. - EKG 1611 Cardiac Rate: NL - 67 BPM EKG Rhythm: Sinus Rhythm - [address] Segment: Normal - NO ST ELEVATIONS EKG Comparison: No Significant Change - SIMILAR TO PREVIOUS EKG ON 09/06/2017 Summary of EKG Findings: Q-WAVE IN LEAD 3. Re-Evaluation - Re-Evaluation First Eval Re-Evaluation Time: 17:34 Comment: Discussed admission with patient. Course/Dx - Course Assessment/Plan: A 87 y/o male accompanied by family presents to ED c/o generalized weakness. As per triage, "pt had kidney infection last week, pt was on ABX, "stomach was rumbling, rumbling and he felt like hell"; yesterday and today pt is weak, no strength". According to the patient, he has been diagnosis with a kidney infection and was placed on Bactrim. 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 He has been taking Bactrim this past week, however, he stated that he has been feeling sick to his stomach. He continued to say that he "feels like hell". He noted that he is not in any pain , however he feels sore and does not feel right/bloated. Also, he has been passing gas lately but not today. He denies any diarrhea as he has had difficulty going to the bathroom. He went to the bathroom this AM and yesterday AM, however, up until then it was 9 days before going to the bathroom. He stated that when he felt like trying to get out of the recliner, he thinks he propels himself enough to get up, but he ends of going back. Denies any pain or blood in urine. In terms of urine output, the patient noted he has been going less than usual as he usually drinks 3 - 16 oz bottles of water. He denies any chest pain, SOB and fever. He continued to state that he feels fairly good. Patient uses cane at home. Blood test result shows slight anemia, acute hyponatremia, creatinine is 1.45 consistent with an acute renal injury, BNP is 597. In the ED course, the patient was given fluids and will be admitted to the hospitalist for acute hyponatremia and renal insufficiency. I discuss my physical exam findings and test results with Dr. Solorzano from the hospitalist services and he agrees to admit patient to his services. Patient is hemodynamically stable alert and oriented x 3. - Diagnoses Provider Diagnoses: Hyponatremia Discharge - Sign-Out/Discharge Documenting (check all that apply): Patient Departure - ADMIT, Sign-Out Patient - KURT Signing out patient TO: Gus Solorzano Receiving patient FROM: Tani Guzmán - Discharge Plan Condition: Stable Disposition: ADMITTED TO [facility] Referrals: Nehemias Hopkins MD [Primary Care Provider] - - Billing Disposition and Condition Condition: STABLE Disposition: Admitted to [facility] - Attestation Statements Document Initiated by Olivier: Yes Documenting Scribe: Bear Armenta Provider For Whom Olivier is Documenting (Include Credential): Tani Guzmán MD Scribe Attestation: Bear Leon, scribed for Tani Guzmán MD on 02/05/18 at 1825. Scribe Documentation Reviewed: Yes Provider Attestation: The documentation as recorded by the Bear whitt accurately reflects the service I personally performed and the decisions made by me, Tani Guzmán MD
[2018-02-05 16:20] LABS: ABS Basophils 0.1 10^3/ul (0-0.2); ABS Eosinophils 0 10^3/ul (0-0.6); ABS Lymphocytes 0.2 10^3/ul (1.0-4.8); ABS Monocytes 0.6 10^3/ul (0-0.8); ABS Neutrophils 7.8 10^3/ul (1.5-7.7); ABS Nucleated RBC 0 10^3/ul; Eosinophil % 0.2 % (0-6); Hematocrit 31 % (42-52); Hemoglobin 10.7 g/dl (14.0-18.0); Lymphocyte % 2.8 % (25-47); Mean Corpuscular HGB Conc 35 g/dl (31-36); Mean Corpuscular Hemoglobin 29 pg (27-31); Mean Corpuscular Volume 83 fL (80-94); Nucleated Red Blood Cells % 0; Platelet Count 142 10^3/ul (150-450); Red Blood Count 3.71 10^6/ul (4.00-5.40); Red Cell Distribution Width 19 % (10.5-15); White Blood Count 8.8 10^3/ul (3.5-10.8)
[2018-02-05 16:37] LABS: EGFR Non-African American 45.9 (>60)
[2018-02-05] MEDS ORDERED: Acetaminophen TAB* 325 MG PO PRN (18:25)
[2018-02-05 18:26] LABS: Urine Appearance Clear; Urine Blood Negative (Negative); Urine Color Yellow; Urine Ketones Trace (Negative); Urine Protein Negative (Negative); Urine Specific Gravity 1.005 (1.010-1.030); Urine Urobilinogen Negative (Negative)
[2018-02-05] MEDS ORDERED: Ondansetron INJ* 2 MG/ML VIAL IV PRN (18:36)
[2018-02-05] MEDS ORDERED: Magnesium Sulfate 2 GM IV* 2 GM/50 ML BAG IVPB ONE (18:36)
[2018-02-05] MEDS: Metoprolol Succinate XL TAB* 50 MG PO SCH (20:20)
[2018-02-05] MEDS: Heparin VIAL(*) 5000 UNITS/ML VIAL (FIVE THOUSAND) SUBCUT SCH (20:21)
--- NOTE | 2018-02-05 21:52 | HP ---
CC: Dr. Hopkins * [facility] MEDICINE HISTORY AND PHYSICAL: DATE OF ADMISSION: 02/05/18 PRIMARY CARE PHYSICIAN: Dr. Hopkins. ATTENDING PHYSICIAN: Dr. Solorzano * (dictation provided by Carina Villarreal NP). CHIEF COMPLAINT: Weakness with nausea. HISTORY OF PRESENT ILLNESS: Mr. Zimmerman is an 87-year-old male with a past medical history of hypertension, BPH, aortic valve replacement, and recent treatment for suspected urinary tract infection with Bactrim, who presents today to the hospital with concern for nausea, poor oral intake, and weakness. Mr. Zimmerman states that he went to see Dr. Hopkins last week for a routine physical. He states that he was completely asymptomatic and denied dysuria or frequency. At that time, urinalysis was checked, which he stated was positive. Dr. Hopkins called the patient the following day to recommend that he go immediately to the pharmacy to chart picker a prescription for Bactrim. The patient has continued on Bactrim all week. He states that he was feeling well until he started taking the Bactrim at which time he developed nausea. He stated that food did not taste good, so he has not really been eating very much. He also is becoming progressively weaker. Today, he attempted to get out of his recliner, but then fell back in because he was so weak and his balance was poor and therefore he decided to come to the emergency room for evaluation. He denies other complaint. He has had no fever or chills, no chest pain, no shortness of breath, no abdominal pain, no diarrhea. In the emergency room, Mr. Zimmerman had labs, which showed that he had a sodium of 122, which was new for him. He also had a mild acute kidney injury with a creatinine of 1.45. His magnesium is 1.8. His CRP was 13.86. BNP of 597. He is mildly anemic with a hemoglobin of 10.7. He had an abdominal x-ray that showed "no radiographic evidence for acute abdominal pelvic pathology" and a chest x-ray that showed chronic findings of extensive classified pleural plaques including involvement of the diaphragmatic services most consistent with prior asbestos exposure. The patient's vitals were stable. He was afebrile. PAST MEDICAL HISTORY: 1. Aortic valve replacement, 2016. 2. Carpal tunnel surgery on the left, 2017. 3. Bilateral total knee arthroplasties. 4. Hypertension. 5. Hyperlipidemia. 6. BPH. 7. Cataract surgery. MEDICATIONS: 1. Irbesartan/hydrochlorothiazide 150/12.5 one tab p.o. daily. 2. Finasteride 5 mg p.o. daily. 3. Cyanocobalamin 1000 mcg p.o. daily. 4. Atorvastatin 10 mg p.o. daily. 5. Aspirin 325 mg p.o. daily. 6. Metoprolol succinate 50 mg p.o. b.i.d. 7. Meloxicam 7.5 mg p.o. daily. 8. Lisinopril 20 mg p.o. daily. 9. Amlodipine 10 mg p.o. daily. 10. Tamsulosin 0.4 mg p.o. daily. ALLERGIES: No known drug allergies. FAMILY HISTORY: Reviewed and noncontributory. SOCIAL HISTORY: No report of alcohol, tobacco, or drug use. The patient lives with his , who is the healthcare proxy. REVIEW OF SYSTEMS: A 14-point review of systems was completed with Mr. Zimmerman and all those not mentioned above were negative. PHYSICAL EXAMINATION GENERAL: Mr. Zimmerman is lying in the bed. He is in no acute distress. VITAL SIGNS: Temperature 99.8, pulse rate 73, respiratory rate 16, O2 saturation 95% on room air, blood pressure 142/59. LUNGS: Clear in the uppers but has harsh expiratory breath sounds in the bases. There is no wheezing. He has good aeration. HEART: S1, S2. No murmur, rub, or gallop and regular. ABDOMEN: Soft, nontender with bowel sounds positive x4. EXTREMITIES: No cyanosis. No edema. NEURO: He is alert. He is oriented x3. He moves all extremities equally. There is no facial asymmetry or focal weakness. Extraocular movements are intact. SKIN: Intact. DIAGNOSTIC STUDIES/LAB DATA: WBC 8.8, hemoglobin 10.7, hematocrit 31, platelet count 142. Sodium 122, potassium 4.7, chloride 91, serum bicarbonate 23, BUN 17, creatinine 1.45, glucose 113, lactic acid 1.8, magnesium 1.8. CRP 13.86. BNP 597. Urine shows no evidence of infection. Chest x-ray and abdominal x-ray are read as per above. The EKG showed a sinus rhythm with heart rate in the 60s and no evidence of ischemia. ASSESSMENT AND PLAN: Mr. Zimmerman is an 87-year-old male with a past medical history of aortic valve replacement, hypertension, hyperlipidemia, who presents to the hospital today after being found to have suspected urinary tract infection, outpatient, though at this point, he tells me he was not symptomatic with that. He was started on Bactrim, which he completed this week. He states that with Bactrim, he has had nausea, inability to tolerate oral intake, and now is developing weakness. Today, he has been found to have hyponatremia. Our plans are for observation in the hospital for the followin. Hyponatremia: The reasons for hyponatremia are multiple. The patient appears euvolemic on exam. He does have an elevated BNP, which could reflect hypervolemia as well as a lower hemoglobin, which would also reflect hypervolemia. However, his creatinine is elevated, which could suggest that he is hypovolemic. I suspect that the hyponatremia could be secondary to hydrochlorothiazide use, though he has not been hyponatremic in the past. It could also be secondary to bactrim or due to nausea leading to poor oral intake this past week. Of course it could be SIADH as well. Plan to check urine osm, serum osm, and urine sodium and to adjust the treatment plan based on that. The patient was given 1 L of normal saline in the emergency room and I do plan to check a basic metabolic panel in a couple of hours and use that along with the serum and urine studies to determine whether the patient should need additional IV fluids or should actually be on a fluid restriction. 2. Hypertension. Plan to continue his amlodipine, metoprolol, lisinopril, but hold irbesartan/hydrochlorothiazide. 3. Hyperlipidemia. Plan to continue atorvastatin. 4. Code status is full code. TIME SPENT: Approximately 60 minutes was spent on the admission of this patient , more than half of the time was spent with the patient at the bedside reviewing the events leading up to this hospitalization, performing the physical examination, and reviewing my plan of care. CARINA VILLARREAL, ADEN [id number]/[facility] #: [id number] JED
[2018-02-05 22:13] LABS: EGFR Non-African American 52.6 (>60)
[2018-02-05] MEDS: NS 0.9% 1000 ML* 1,000 ML IV SCH (22:45)
[2018-02-06 02:17] LABS: EGFR Non-African American 52.6 (>60)
[2018-02-06] MEDS: Heparin VIAL(*) 5000 UNITS/ML VIAL (FIVE THOUSAND) SUBCUT SCH ×3 (04:48→21:26)
[2018-02-06] MEDS: Metoprolol Succinate XL TAB* 50 MG PO SCH ×2 (09:38→21:26)
[2018-02-06] MEDS: Finasteride TAB* 5 MG PO SCH (09:38)
[2018-02-06] MEDS: Aspirin EC TAB* 325 MG PO SCH (09:38)
[2018-02-06] MEDS: amLODIPine TAB* 5 MG PO SCH (09:38)
[2018-02-06] MEDS: Atorvastatin* 10 MG TAB PO SCH (09:38)
[2018-02-06] MEDS: Tamsulosin CAP* 0.4 MG PO SCH (09:39)
[2018-02-06] MEDS: Cyanocobalamin TAB* 500 MCG PO SCH (09:39)
[2018-02-06] MEDS: Lisinopril TAB* 10 MG PO SCH (09:39)
[2018-02-06] MEDS: NS 0.9% 1000 ML* 1,000 ML IV SCH (12:59)
--- NOTE | 2018-02-06 18:45 | PN ---
Subjective Date of Service: 02/06/18 Interval History: patient reports that he is feeling better. no complaints of chest pain or shortness of breath. denies abd pain n/v/d. Sodium continue to improve with hydration Family History: Unchanged from Admission Social History: Unchanged from Admission Past Medical History: Unchanged from Admission Objective Active Medications: Acetaminophen (Tylenol Tab*) 650 mg PO Q6H PRN PRN Reason: PAIN Amlodipine Besylate (Norvasc Tab*) 10 mg PO DAILY [facility] Last Admin: 02/06/18 09:38 Dose: 10 mg Aspirin (Ecotrin Ec Tab*) 325 mg PO DAILY [facility] Last Admin: 02/06/18 09:38 Dose: 325 mg Atorvastatin Calcium (Lipitor*) 10 mg PO DAILY [facility] Last Admin: 02/06/18 09:38 Dose: 10 mg Cyanocobalamin (Vitamin B12 Tab*) 1,000 mcg PO DAILY [facility] Last Admin: 02/06/18 09:39 Dose: 1,000 mcg Finasteride (Proscar Tab*) 5 mg PO DAILY [facility] Last Admin: 02/06/18 09:38 Dose: 5 mg Heparin Sodium (Porcine) (Heparin Vial(*)) 5,000 units SUBCUT Q8HR [facility] Last Admin: 02/06/18 12:59 Dose: 5,000 units Sodium Chloride (Ns 0.9% 1000 Ml*) 1,000 mls @ 75 mls/hr IV PER RATE [facility] Stop: 02/06/18 23:00 Last Admin: 02/06/18 12:59 Dose: 75 mls/hr Lisinopril (Prinivil Tab*) 20 mg PO DAILY [facility] Last Admin: 02/06/18 09:39 Dose: 20 mg Metoprolol Succinate (Toprol Xl Tab*) 50 mg PO BID [facility] Last Admin: 02/06/18 09:38 Dose: 50 mg Ondansetron HCl (Zofran Inj*) 4 mg IV Q6H PRN PRN Reason: NAUSEA Tamsulosin HCl (Flomax Cap*) 0.4 mg PO DAILY [facility] Last Admin: 02/06/18 09:39 Dose: 0.4 mg Vital Signs - 8 hr 02/06/18 02/06/18 11:21 15:21 Temperature 99.4 F 98.0 F Pulse Rate 63 62 Respiratory 20 14 Rate Blood Pressure 115/52 (mmHg) O2 Sat by Pulse 96 98 Oximetry Oxygen Devices in Use Now: None Appearance: alert and oriented resting in bed, no acute distress Eyes: No Scleral Icterus Ears/Nose/Mouth/Throat: Clear Oropharnyx, Mucous Membranes Moist Neck: NL Appearance and Movements; NL JVP, Trachea Midline Respiratory: Symmetrical Chest Expansion and Respiratory Effort, Clear to Auscultation Cardiovascular: NL Sounds; No Murmurs; No JVD, No Edema Abdominal: NL Sounds; No Tenderness; No Distention Extremities: No Edema, No Clubbing, Cyanosis Skin: No Rash or Ulcers Neurological: Alert and Oriented x 3 Nutrition: Taking PO's Result Diagrams: 02/05/18 16:03 02/06/18 17:54 Assess/Plan/Problems-Billing Assessment: Mr. Zimmerman is an 87 y.o male with a past medical history of aortic valve replacement, htn and hld who presented to the ER with weakness, loss of appetite ; recently started on bactrim for UTI. Found to have hyponatremia. - Patient Problems (1) Hyponatremia Current Visit: Yes Status: Acute Code(s): E87.1 - HYPO-OSMOLALITY AND HYPONATREMIA SNOMED Code(s): 26777269 Comment: Suspect this is related to poor po intake and being on bactrim for uspected UTI - IV normalsaline started and sodium is responding well- repeat sodium with evening 128 - will repeaet BMP in AM - will stop IVF normal at 2300 (2) HTN (hypertension) Current Visit: Yes Status: Acute Code(s): I10 - ESSENTIAL (PRIMARY) HYPERTENSION SNOMED Code(s): 35066839 Comment: stable Continue home medications amilodipine and lisinopril (3) HLD (hyperlipidemia) Current Visit: Yes Status: Acute Code(s): E78.5 - HYPERLIPIDEMIA, UNSPECIFIED SNOMED Code(s): 87645953 Comment: cotinue lipitor (4) DVT prophylaxis Current Visit: Yes Status: Acute Code(s): XRQ5648 - SNOMED Code(s): 588430489 Comment: heparin subq (5) Full code status Current Visit: Yes Status: Acute Code(s): Z78.9 - OTHER SPECIFIED HEALTH STATUS SNOMED Code(s): 937850627 Status and Disposition: inpatient - discharge when medically stable to home
[2018-02-07] MEDS: Heparin VIAL(*) 5000 UNITS/ML VIAL (FIVE THOUSAND) SUBCUT SCH (05:56)
[2018-02-07 08:23] LABS: EGFR Non-African American 60.6 (>60)
[2018-02-07] MEDS: Lisinopril TAB* 10 MG PO SCH (09:46)
[2018-02-07] MEDS: Aspirin EC TAB* 325 MG PO SCH (09:46)
[2018-02-07] MEDS: amLODIPine TAB* 5 MG PO SCH (09:47)
[2018-02-07] MEDS: Cyanocobalamin TAB* 500 MCG PO SCH (09:47)
[2018-02-07] MEDS: Atorvastatin* 10 MG TAB PO SCH (09:47)
[2018-02-07] MEDS: Metoprolol Succinate XL TAB* 50 MG PO SCH (09:48)
[2018-02-07] MEDS: Finasteride TAB* 5 MG PO SCH (09:48)
[2018-02-07] MEDS: Tamsulosin CAP* 0.4 MG PO SCH (09:48)
[2018-02-07 12:03] VITALS: BP 111/42
--- NOTE | 2018-02-07 23:44 | PN ---
Subjective Date of Service: 02/07/18 Interval History: reports feeling well, states ambulated in the hallway several times. Denied weakness or unsteady gait. Denies chest pain or shortness of breath. Denies abd pain , n/v/d. states that he is tolerating meals well. Family History: Unchanged from Admission Social History: Unchanged from Admission Past Medical History: Unchanged from Admission Objective Oxygen Devices in Use Now: None Appearance: alert, appear comfortable , no acute distress Eyes: No Scleral Icterus Ears/Nose/Mouth/Throat: Clear Oropharnyx, Mucous Membranes Moist Neck: NL Appearance and Movements; NL JVP, Trachea Midline Respiratory: Symmetrical Chest Expansion and Respiratory Effort, Clear to Auscultation Cardiovascular: NL Sounds; No Murmurs; No JVD, RRR Abdominal: NL Sounds; No Tenderness; No Distention Extremities: No Edema Skin: No Rash or Ulcers Neurological: Alert and Oriented x 3 Nutrition: Taking PO's Result Diagrams: 02/05/18 16:03 02/07/18 07:38 Assess/Plan/Problems-Billing Assessment: Mr. Zimmerman is an 87 y.o male with a past medical history of aortic valve replacement, htn and hld who presented to the ER with weakness, loss of appetite ; recently started on bactrim for UTI. Found to have hyponatremia. - Patient Problems (1) Hyponatremia Status: Acute Code(s): E87.1 - HYPO-OSMOLALITY AND HYPONATREMIA SNOMED Code( s): 09233733 Comment: Suspect this is related to poor po intake and being on bactrim for uspected UTI - IV normal saline started and sodium is responding well- repeat sodium with evening 128 - repeat sodium 131 this AM, PO intake improved recommend repeat bmp in 1 week with pmd (2) Anemia Status: Acute Code(s): D64.9 - ANEMIA, UNSPECIFIED SNOMED Code(s): 527248365 Comment: Mild decrease from baseline - no signs of bleeding, no melena , vomiting blood, reported - will monitor for signs of bleeding - would recommend repeat cbc in 1 week with PMD (3) HTN (hypertension) Status: Acute Code(s): I10 - ESSENTIAL (PRIMARY) HYPERTENSION SNOMED Code(s) : 13624591 Comment: stable Continue home medications amilodipine and metoprolol will stop lisinopril and irbesartan/hctz- until follow up with PMD given soft sbp 111-117 (4) HLD (hyperlipidemia) Status: Acute Code(s): E78.5 - HYPERLIPIDEMIA, UNSPECIFIED SNOMED Code(s): 56121602 Comment: cotinue lipitor (5) DVT prophylaxis Status: Acute Code(s): LTG5101 - SNOMED Code(s): 264371891 Comment: heparin subq (6) Full code status Status: Acute Code(s): Z78.9 - OTHER SPECIFIED HEALTH STATUS SNOMED Code(s) : 338275648 Status and Disposition: obv- discharge home
--- NOTE | 2018-02-08 08:32 | DS ---
AMENDED REPORT FOR PORTABLE [employer] OPERATOR REVIEW CC: Dr. Hopkins* DISCHARGE SUMMARY: DATE OF ADMISSION: 02/05/18 DATE OF DISCHARGE: 02/07/18 PROVIDER: Wendi Velázquez NP ATTENDING PHYSICIAN: Dr. Amalia Rawls * (dictated by Wendi Velázquez NP) PRIMARY CARE PROVIDER: Dr. Hopkins. PRIMARY DIAGNOSES: 1. Hyponatremia. 2. Dehydration/weakness. STUDIES COMPLETED WHILE IN THE HOSPITAL: He had an abdominal x-ray on . Radiologist's impression: No evidence of acute abdominal pelvic pathology. He had a chest x-ray on 02/05/18. 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 No acute cardiopulmonary process is evident. An electrocardiogram, which showed sinus rhythm at a rate of 65, first-degree block. DISCHARGE MEDICATIONS: Discontinued medications: 1. Irbesartan with hydrochlorothiazide. 2. Lisinopril. Continued home medications: 1. Proscar 5 mg p.o. daily. 2. Vitamin B12 1000 mcg p.o. daily. 3. Atorvastatin 10 mg p.o. daily. 4. Aspirin 325 mg p.o. daily. 5. Metoprolol 50 mg p.o. b.i.d. 6. Mobic 7.5 mg p.o. daily. 7. Amlodipine 10 mg p.o. daily. 8. Flomax 0.4 mg p.o. daily. 9. Tylenol 650 mg p.o. q.6 hours as needed for pain. HISTORY OF PRESENT ILLNESS AND HOSPITAL COURSE: Mr. Zimmerman is an 87-year-old gentleman with past medical history significant for hypertension, BPH, aortic valve replacement, and recent suspected urinary tract infection, treatment with Bactrim, who presented to the hospital on the day of admission with nausea and poor intake and weakness. Mr. Zimmerman states that he went to see Dr. Hopkins last week for routine physical and states he was completely asymptomatic. Denied dysuria or urinary frequency. At that time, the urinalysis was checked, which stated was positive and Dr. Hopkins called him the following day and recommended he go to the pharmacy and pear picker prescription for Bactrim. The patient reports that he developed nausea after starting the Bactrim and that food did not taste good and he was not eating very much and became progressively weaker today. He attempted to get out of the recliner and fell back because he was so weak and his balance was poor; therefore, he decided to come to the emergency room for further evaluation. He denies any other complaints. He denied any fever, chills, chest pain or shortness of breath. No abdominal pain and no diarrhea. While in the emergency room, the patient had routine lab work drawn. He was found to have a mild acute kidney injury with the creatinine of 1.45 and magnesium of 1.8, CRP of 13.86, BNP of 597. He was mildly anemic with a hemoglobin of 10.7. He was found to have a sodium level of 122. Given his symptoms of weakness and hyponatremia, we were asked to see and evaluate him for admission. While in the hospital, the patient had IV fluids and has sodium level improved and on the day of discharge, it was 131. The patient reports that he is feeling much better. He denies any weakness. He denies any chest pain or shortness of breath. He denies any fever or chills. Denies any further symptoms. He denies any pain or dysuria. He did have urinalysis sent that was within normal limits, specific gravity was 1.005, and ketones were trace, the rest of the urinalysis was negative. Urine sodium concentration was 39 and urine serum osmolality was 218. The patient was normotensive during this hospitalization with the blood pressure ranging systolically between 111 to 149. During the hospitalization, his irbesartan/hydrochlorothiazide was held. On the day of discharge, I also discontinued his lisinopril until followup with his primary care provider due to mild hypotension. At this time, Mr. Zimmerman is stable for discharge home. Temperature was 97.6, heart rate was initially reported at 33 but repeat apical pulse was 56 and regular, respiratory rate was 18, O2 saturation was 99% on room air, blood pressure was 111/42. DISCHARGE PLAN: Mr. Zimmerman will be discharged back home. Activity as tolerated. 1. Hyponatremia/dehydration. The patient was given IV fluid during his hospitalization. His hyponatremia improved. His symptoms resolved. He was able to ambulate in the [place] without difficulty, any dizziness or weakness. He was much improved after his IV hydration. I suspect that dehydration and weakness was related to starting Bactrim and poor p.o. intake and urinary tract infection. He did have a repeat urinalysis during this hospitalization that did not show any evidence of urinary tract infection. Sodium improved from 120- 131 with IV fluids during this hospitalization. 2. Mild low systolic normal blood pressure. The patient was not given irbesartan/hydrochlorothiazide during this hospitalization. This will be continued to be held. I also will hold his lisinopril at discharge until followup with his primary care provider. He will continue his metoprolol and amlodipine as previously prescribed. SBP ranged from 111- 149 during his hospitalization with holding Irbesartan/HCTZ and lisinopril. 3. Mild anemia. The patient was found to be mildly anemic during this hospitalization. I would recommend a repeat CBC in 1 week. The patient denied any abdominal pain, black or tarry stools, vomiting of blood or further abdominal pain during the hospitalization. 4. Hyperlipidemia. The patient should continue on atorvastatin 10 mg p.o. daily. 5. BPH. He should continue on Proscar and Flomax as previously prescribed. The patient should follow up with his primary care provider in 4 to 7 days for blood pressure recheck and he should also have a repeat CBC in 1 week as well as BMP to recheck his sodium level. The patient was instructed to return to the emergency room for any chest pain, shortness of breath, any nausea or vomiting, weakness or dizziness, or any other concerning symptoms. This is a summarization of his hospitalization. For further details are needed , please see the entire medical record. TIME SPENT: Time spent on this discharge was approximately 60 minutes, greater than half that time was spent with the patient discussing discharge plans and instructions. CONDITION ON DISCHARGE: Stable. WENDI VELÁZQUEZ, ADEN [id number]/[facility] #: [id number] JED
== END 2018-02-07 15:30 | disposition home or self-care (01) | DRG 683 ==
LOC: ED 15:45 → MED 18:18 → OBSVTOIN 02-06 16:30
PROVIDERS: ADMIT Student in an Organized Health Care Education/Training Program; ATTEND Hospitalist
DX: N17.9 Acute kidney failure, unspecified (principal); E87.1 Hypo-osmolality and hyponatremia; E86.0 Dehydration; I44.0 Atrioventricular block, first degree; I10 Essential (primary) hypertension; N40.0 Benign prostatic hyperplasia without lower urinary tract symptoms; Z96.653 Presence of artificial knee joint, bilateral; D64.9 Anemia, unspecified; E78.5 Hyperlipidemia, unspecified; I95.9 Hypotension, unspecified; T37.0X5A Adverse effect of sulfonamides, initial encounter; M19.90 Unspecified osteoarthritis, unspecified site; Z79.82 Long term (current) use of aspirin; Z95.2 Presence of prosthetic heart valve; Z87.440 Personal history of urinary (tract) infections; Z98.42 Cataract extraction status, left eye; Z98.41 Cataract extraction status, right eye; Z82.49 Family history of ischemic heart disease and other diseases of the circulatory system; Y92.9 Unspecified place or not applicable
CPT/HCPCS: 36415; 71045; 74019; 80048; 80053; 81003; 82550; 83605; 83735; 83880; 83930; 83935; 84300; 84443; 84484; 85025; 86140; 93005; 99284; A9270-GY; G8978-GP-CI; G8979-GP-CI; G8980-GP-CI; J1644; J3475

== ENCOUNTER 2018-06-30 16:33 | Emergency (ER) | payer MEDICARE ==
--- NOTE | 2018-06-30 17:02 | UC ---
Cardiac HPI - HPI Summary HPI Summary: Patient presents to urgent care with his granddaughter. Patient states for the last 48 hours he's had multiple episodes of substernal pressure. Patient states his episodes are brief lasting 10 seconds to 2 minutes. Patient states he feel little short of breath with him. No nausea or diaphoresis. No lightheaded. Patient is not taken anything to treat him. Patient with a history of hypertension, high cholesterol. Patient status post valve replacement several years ago. Patient does not have any known coronary artery disease. Patient isn't has stents. Patient is in rehabilitation following pneumonia. She is due to come home on Tuesday any states been very stressed about her care. Patient's solidworks drafter is Dr. Butler. Patient did not call today regarding the chest pain. Patient's medications reviewed this visit. Patient does take a full 325 aspirin daily. When patient arrived he had no chest pain. At the time of my exam patient has had 2 episodes of chest discomfort in the room prior to my evaluation. Patient's medication list reviewed this visit. - History of Current Complaint Chief Complaint: UCChestPain Stated Complaint: CHEST PAIN Time Seen by Provider: 06/30/18 17:01 Hx Obtained From: Patient Onset/Duration: Lasting Minutes Timing: Constant Initial Severity: Mild Current Severity: Mild Pain Intensity: 0 Character: Pressure/Squeezing - Allergy/Home Medications Allergies/Adverse Reactions: Allergies Allergy/AdvReac Type Severity Reaction Status Date / Time No Known Allergies Allergy Verified 06/30/18 16:49 PMH/Surg Hx/FS Hx/Imm Hx Previously Healthy: Yes Cardiovascular History: Hypertension, Other - cardiac valve replacement - Surgical History Surgical History: Yes Surgery Procedure, Year, and Place: Knee Replacement bilat. Aortic valve replacement 2016 - [facility] [employer] T[employer] MODEL # [id number] (@ [facility])- CONDITIONAL 5 UP TO 3T FOR MRIs ( PT KNOWNS TO BRING CARD). CATARACT, LEFT WRIST CARPAL TUNNEL - Family History Known Family History: Positive: Hypertension Negative: Cardiac Disease, Diabetes - Social History Occupation: Retired Lives: With Family Alcohol Use: None Substance Use Type: None Smoking Status (MU): Never Smoked Tobacco - Immunization History Most Recent Influenza Vaccination: 01/05 Most Recent Tetanus Shot: unk Most Recent Pneumonia Vaccination: 2015 Review of Systems All Other Systems Reviewed And Are Negative: Yes Skin: Positive: Negative Eyes: Positive: Negative ENT: Positive: Negative Respiratory: Positive: Shortness Of Breath - episodic with pain Cardiovascular: Positive: Chest Pain Physical Exam - Summary Physical Exam Summary: Vital Signs Reviewed: Yes A+Ox3, pleasant, no distress Eyes: Conjunctiva Clear, TEENA. EOM intact and full ENT: Hearing grossly normal TM x 2 clear, mmoist, uvula midline, no exudate, no erythema Neck: Positive: Supple Respiratory: Positive: No respiratory distress, No accessory muscle use + CTA throughout no w/r Cardiovascular: RRR nl s1, s2 + soift murmurs, no carotid bruits, CBT <2 sec abd soft + BS nt/nd no guarding, no distension Musculoskeletal Exam: FALL x 4 without difficulty Strength Intact, ROM Intact Neurological: Positive: Alert, + sensation throughout Psychological: Positive: Normal Response To Family Skin: Positive: no rash, no ecchymosis Triage Information Reviewed: Yes Vital Signs: Initial Vital Signs Temp 100.6 F 06/30/18 16:43 Pulse 78 06/30/18 16:43 Resp 16 06/30/18 16:43 BP 160/75 06/30/18 16:43 Pulse Ox 96 06/30/18 16:43 - Assessment/Plan Course Of Treatment: Patient presents to urgent care with his granddaughter. Patient is an 87-year- old male with a history of hypertension, hyperlipidemia. No known cardiac disease but did have a valve replaced several years ago. Patient here because he's had 2 days of intermittent episodes of chest pressure. Patient feel short of breath with the pressure. No nausea or vomiting. No diaphoresis. Patient is not taken anything for the discomfort. Patient's is scheduled to be discharged from rehabilitation on Tuesday and this is causing him stress. Patient also states his friend went to the hospital with pneumonia and recently to he was thinking about that. Patient without recent cardiac stress test. Patient called solidworks drafter today. Upon arrival patient was pain-free but had 2 episodes while waiting for my assessment. EKG without any change from a previous one. Discussed with patient and daughter length. Recommend patient to emergency department. We'll transfer by EMS and we'll place a line. Patient took 325mg of aspirin. I called and spoke to DIANN Spence in the ED who is aware of patient plan for transfer to ED. Pt's with elevated BP - h.o same - Clinical Impression Provider Diagnosis: Chest pain Discharge - Sign-Out/Discharge Documenting (check all that apply): Patient Departure All imaging exams completed and their final reports reviewed: No Studies - Discharge Plan Condition: Good Disposition: TRANS HIGHER LVL OF CARE FAC Referrals: Nehemias Hopkins MD [Primary Care Provider] - - Billing Disposition and Condition Condition: GOOD Disposition: Trans Higher Lvl of Care Fac
[2018-06-30 17:33] VITALS: BP 150/71
== END 2018-06-30 17:39 | disposition short-term general hospital (02) ==
LOC: UCEAST 16:33
DX: R07.89 Other chest pain (principal); R06.02 Shortness of breath; R94.31 Abnormal electrocardiogram [ECG] [EKG]; I10 Essential (primary) hypertension; Z95.2 Presence of prosthetic heart valve; Z96.653 Presence of artificial knee joint, bilateral
CPT/HCPCS: 93005; 99213; G0463

== ENCOUNTER 2018-06-30 18:03 | Observation (INO) | payer MEDICARE ==
--- NOTE | 2018-06-30 19:39 | ED ---
HPI Chest Pain - HPI Summary HPI Summary: An 87 y/o male brought in by [email or web address] ambulance presents to [facility] with a chief complaint of chest pain when turning his head for the past two three days. At triage he rated his pain as a 0/10 in severity. He reports that this pain is intermittent. He claims that he has a fever. He denies numbness, N/V/D, SOB, cough, or confusion. He reports some constipation, runny nose, some swelling in his legs and redness in his legs that he claims is always there. Temperature of 101.7 noted at triage. He went to his urologist and started Bactrim yesterday. - History of Current Complaint Chief Complaint: EDChestPainROMI Time Seen by Provider: 06/30/18 18:54 Hx Obtained From: Patient Onset/Duration: Started Days Ago, Still Present Timing: Intermittent, Lasting Seconds Initial Severity: Mild Current Severity: None Pain Intensity: 0 Pain Scale Used: 0-10 Numeric Chest Pain Location: Diffuse Chest Pain Radiates: No Character: Tightness Aggravating Factor(s): Other: - turning head Alleviating Factor(s): Nothing Associated Signs and Symptoms: Positive: Fever, Calf Pain/Swelling, Edema. Negative: Numbness, Shortness of Breath, Nausea, Cough, Vomiting - Additional Pertinent History Primary Care Physician: [id number] - Allergy/Home Medications Allergies/Adverse Reactions: Allergies Allergy/AdvReac Type Severity Reaction Status Date / Time No Known Allergies Allergy Verified 06/30/18 16:49 Home Medications: Home Medications Amlodipine Besylate [Norvasc] 06/30/18 [History] Aspirin 06/30/18 [History] Atorvastatin* 06/30/18 [History] Bactrim DS 800/160 TAB* 06/30/18 [History Confirmed 06/30/18] Finasteride 06/30/18 [History] Irbesartan-Hctz 150-12.5 mg Tb 06/30/18 [History] Lisinopril 06/30/18 [History] Metoprolol ER-Hctz 25-12.5 mg 06/30/18 [History] Tamsulosin CAP* 06/30/18 [History] PMH/Surg Hx/FS Hx/Imm Hx Endocrine/Hematology History: Denies: Hx Diabetes, Hx Thyroid Disease Cardiovascular History: Reports: Hx Hypertension, Hx Valvular Heart Disease - AORTIC VALVE REPLACEMENT 2016, Other Cardiovascular Problems/Disorders - HIGH CHOLESTEROL Denies: Hx Pacemaker/ICD Respiratory History: Denies: Hx Asthma, Hx Chronic Obstructive Pulmonary Disease (COPD) GI History: Denies: Hx Ulcer History: Reports: Other Problems/Disorders - ENLARGED PROSTATE Denies: Hx Renal Disease Musculoskeletal History: Reports: Hx Arthritis, Hx Back Problems Sensory History: Reports: Hx Cataracts - 12/09, 12/16 Denies: Hx Contacts or Glasses, Hx Hearing Aid Opthamlomology History: Reports: Hx Cataracts - 12/09, 12/16 Denies: Hx Contacts or Glasses Neurological History: Reports: Hx Nerve Disease - carpal tunnel left hand Psychiatric History: Denies: Hx Panic Disorder - Surgical History Surgery Procedure, Year, and Place: Knee Replacement bilat. Aortic valve replacement 2016 - [facility] [facility] TISS[facility] VALVE MODEL # TF21A (@ [facility])- CONDITIONAL 5 UP TO 3T FOR MRIs ( PT KNOWNS TO BRING CARD). CATARACT, LEFT WRIST CARPAL TUNNEL Hx Anesthesia Reactions: No - Immunization History Date of Influenza Vaccine: 10/2016 Infectious Disease History: No Infectious Disease History: Denies: Hx Hepatitis, Hx Human Immunodeficiency Virus (HIV), Traveled Outside the in Last 30 Days - Family History Known Family History: Positive: Hypertension Negative: Cardiac Disease, Diabetes - Social History Alcohol Use: None Hx Substance Use: No Substance Use Type: Reports: None Hx Tobacco Use: No Smoking Status (MU): Never Smoked Tobacco Review of Systems Positive: Fever Positive: Nasal Discharge Positive: Chest Pain Negative: Shortness Of Breath, Cough Positive: Other - positive: constipation. Negative: Vomiting, Diarrhea, Nausea Positive: Edema Neurological: Negative - confusion Negative: Numbness All Other Systems Reviewed And Are Negative: Yes Physical Exam - Summary Physical Exam Summary: Constitutional: Well-developed, Well-nourished, Alert. (-) Distressed Skin: Warm, Dry HENT: Normocephalic; Atraumatic Eyes: Conjunctiva normal Neck: Musculoskeletal ROM normal neck. (-) JVD, (-) Stridor, (-) Tracheal deviation Cardio: Rhythm regular, rate normal, Heart sounds normal; Intact distal pulses; The pedal pulses are 2+ and symmetric. Radial pulses are 2+ and symmetric. (-) Murmur Pulmonary/Chest wall: Effort normal. (-) Respiratory distress, (-) Wheezes, (-) Rales Abd: Soft, (-) tenderness, (-) Distension, (-) Guarding, (-) Rebound Musculoskeletal: 2+ pitting edema LLE, 1+ pitting edema in RLE, 2cm scab right ames with surrounding erythema down to ankle Lymph: (-) Cervical adenopathy Neuro: Alert, Oriented x3 Psych: Mood and affect Normal Triage Information Reviewed: Yes Vital Signs On Initial Exam: Initial Vitals Temp Pulse Resp BP Pulse Ox 101.7 F 90 24 195/84 97 06/30/18 18:15 06/30/18 18:15 06/30/18 18:15 06/30/18 18:15 06/30/18 18:15 Vital Signs Reviewed: Yes Diagnostics - Vital Signs Vital Signs Temp Pulse Resp BP Pulse Ox 06/30/18 19:01 23 168/91 06/30/18 19:00 20 06/30/18 18:45 84 25 162/86 95 06/30/18 18:31 86 15 161/85 95 06/30/18 18:18 89 10 195/84 97 06/30/18 18:17 89 16 96 06/30/18 18:15 101.7 F 90 24 195/84 97 - Laboratory Result Diagrams: 06/30/18 19:36 06/30/18 19:36 Lab Statement: Any lab studies that have been ordered have been reviewed, and results considered in the medical decision making process. - Radiology CXR Radiology Interpretation Completed By: ED Physician Summary of Radiographic Findings: Chronic changes. Nothing acute. Patchy inflitrate. Pending official imaging report. - Ultrasound No standard instances Ultrasound Interpretation Completed By: Radiologist Summary of Ultrasound Findings: Venous doppler study impression: 1. No evidence of right or left lower extremity DVT. 2. Bilateral calf edema. ED physician has reviewed this imaging report. - EKG 19:06 Cardiac Rate: NL - 86 bpm EKG Rhythm: Sinus Rhythm Summary of EKG Findings: Normal sinus rhythm at 86 bpm, normal CT, normal QRS, normal QTc, normal axis, normal ST, normal T-waves, nonspeific EKG. Re-Evaluation - Re-Evaluation First Eval Re-Evaluation Time: 22:17 Change: Unchanged Comment: Discussed results and plan for admission. Chest Pain Course/Dx - Course Course Of Treatment: An 87 y/o male brought in by [email or web address] ambulance presents to [facility] with a chief complaint of chest pain when turning his head for the past two three days. He claims that he has a fever. He denies numbness, N/V/D, SOB, cough, or confusion. He reports some constipation, runny nose, some swelling in his legs and redness in his legs that he claims is always there. The physical exam revealed 2+ pitting edema LLE, 1+ pitting edema in RLE, 2cm scab right ames with surrounding erythema down to ankle. Blood work, chemistries and urines obtained. Urine Protein 1+, Urine bacteria 1+. EKG at 19:06 showed Normal sinus rhythm at 86 bpm, normal CT, normal QRS, normal QTc, normal axis, normal ST, normal T-waves, nonspeific EKG. Venous doppler study impression: 1. No evidence of right or left lower extremity DVT. 2. Bilateral calf edema. CXR showed Chronic changes. Nothing acute. Patchy inflitrate. Discussed case with Dr. Espinosa, hospitalist, who accepted the patient for admission. The patient is agreeable with this plan. - Diagnoses Provider Diagnoses: Cellulitis, Chest pain - Provider Notifications Discussed Care Of Patient With: Abdulaziz Espinosa Time Discussed With Above Provider: 22:23 Instructed by Provider To: Admit As Inpatient Discharge - Sign-Out/Discharge Documenting (check all that apply): Patient Departure - admit Patient Received Moderate/Deep Sedation with Procedure: No - Discharge Plan Condition: Fair Disposition: ADMITTED TO [facility] Referrals: Nehemias Hopkins MD [Primary Care Provider] - - Billing Disposition and Condition Condition: FAIR Disposition: Admitted to [facility] - Attestation Statements Document Initiated by Olivier: Yes Documenting Scribe: Juan Rico Provider For Whom Olivier is Documenting (Include Credential): Nevaeh Godinez MD Scribe Attestation: Edward, price Anguloed for Nevaeh Mei MD on 06/30/18 at 2266. Scribe Documentation Reviewed: Yes Provider Attestation: The documentation as recorded by the Juan whitt accurately reflects the service I personally performed and the decisions made by me, Nevaeh Mei MD Status of Scribe Document: Viewed
[2018-06-30 19:53] LABS: ABS Basophils 0.1 10^3/ul (0-0.2); ABS Eosinophils 0.1 10^3/ul (0-0.6); ABS Lymphocytes 0.4 10^3/ul (1.0-4.8); ABS Monocytes 0.6 10^3/ul (0-0.8); ABS Neutrophils 6.2 10^3/ul (1.5-7.7); ABS Nucleated RBC 0 10^3/ul; Eosinophil % 1.8 %; Hematocrit 32 % (36-46); Hemoglobin 10.7 g/dL (14.0-18.0); Mean Corpuscular HGB Conc 33 g/dL (31-36); Mean Corpuscular Hemoglobin 27 pg (27-31); Mean Corpuscular Volume 80 fL (80-94); Mean Platelet Volume 8.3 fL (7.4-10.4); Nucleated Red Blood Cells % 0; Platelet Count 194 10^3/uL (150-450); Red Blood Count 4.04 10^6 /uL (4.18-5.48); Red Cell Distribution Width 18 % (10.5-15); White Blood Count 7.4 10^3/uL (3.5-10.8)
[2018-06-30 20:14] LABS: Albumin 3.8 g/dL (3.2-5.2); Albumin/Globulin Ratio 1.5 (1-3); BUN/Creatinine Ratio 11.9 (8-20); Calcium 9.1 mg/dL (8.6-10.3); EGFR African American 84.4 (>60); EGFR Non-African American 69.7 (>60); Globulin 2.6 g/dL (2-4); Total Bilirubin 0.9 mg/dL (0.2-1.0); Total Protein 6.4 g/dL (6.4-8.9)
[2018-06-30 20:15] LABS: Troponin I 0.02 ng/mL (<0.04)
[2018-06-30 20:48] LABS: Urine Appearance Clear; Urine Bacteria 1+ (Absent); Urine Bilirubin Negative (Negative); Urine Blood Negative (Negative); Urine Color Straw; Urine Glucose Negative (Negative); Urine Ketones Negative (Negative); Urine Nitrite Negative (Negative); Urine Protein 1+(30 mg/dL) (Negative); Urine Red Blood Cell Absent (Absent); Urine Specific Gravity 1.006 (1.010-1.030); Urine Urobilinogen Negative (Negative); Urine White Blood Cell Trace(0-5/hpf) (Absent)
[2018-06-30] MEDS ORDERED: cefTRIAXone VIAL(*) 1,000 MG VIAL ONE (22:19)
[2018-06-30] MEDS ORDERED: Acetaminophen TAB* 325 MG PO ONE (22:20)
[2018-06-30] MEDS ORDERED: cefTRIAXone(*) 1 GM in NS 0.9% 50 ML* 50 ML IVPB ONE (22:20)
[2018-07-01] MEDS ORDERED: Vancomycin(*) 1,000 MG in NS 0.9% 250 ML* 250 ML IVPB ONE (01:11)
[2018-07-01] MEDS ORDERED: Ondansetron INJ* 2 MG/ML VIAL IV PRN (01:14)
[2018-07-01] MEDS ORDERED: Acetaminophen TAB* 325 MG PO PRN (01:14)
--- NOTE | 2018-07-01 02:42 | HP ---
ADMISSION HISTORY AND PHYSICAL: DATE OF ADMISSION: 06/30/18 PRIMARY CARE PROVIDER: Dr. Hopkins. HEALTHCARE PROXY: His daughters. CODE STATUS: Full. SOURCE OF INFORMATION: History obtained from interview with the patient, review of past medical records. RELIABILITY: Good. CHIEF COMPLAINT: Chest pain when turning his head for 2 to 3 days. HISTORY OF PRESENT ILLNESS: This is an 87-year-old man with past medical history of valvular disease, status post aortic valve replacement in 2016 as well as asbestos exposure with imaging consistent with underlying interstitial fibrosis and some pleural changes, but asymptomatic, who has been in his usual state of health. For the past 2 to 3 days, he started noticing "tightening up" that would come and go in his chest when he would look to the left or the right , that would last for seconds. It was never associated with shortness of breath , nausea, vomiting, loss of consciousness. He was unequivocal about lightheadedness that he could not tell whether he did or did not have any lightheadedness. Because of persistent symptoms that would come with turning his head and his description of chest tightness, he did proceed to urgent care. Upon hearing of the chest tightening up, they did advise thorough evaluation in the emergency room where he was referred. In the emergency room, he was found to have fevers as well as concern for cellulitis in right lower extremity for which hospitalist service was consulted. Of note on presentation to the emergency room, he had no pain and no chest tightness and has not developed any since arrival. He was seen by Urology for routine followup on 06/27/18 and a urinalysis was concerning for a UTI, which also did grow pansensitive E. coli for which he has been treated with Bactrim, but with no symptoms. He notes that his leg does have redness that comes and goes, and this episode may have been present for 1 to 2 days, but has not been painful. He denies cough or URI symptoms. No symptoms. No GI symptoms. No headache. 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 MEDICATIONS: Medications have not been thoroughly reconciled. The patient indicated he brought a list that was taken by nursing and there have been some updates to the home medication list, however, all are still listed is unconfirmed. At this point, his daughters have left with the list. Medications as appear in the computer include: 1. Tamsulosin. 2. Metoprolol and hydrochlorothiazide combination 25/12.5. 3. Lisinopril. 4. Irbesartan and hydrochlorothiazide 150/12.5. 5. Finasteride. 6. Bactrim double strength. 7. Atorvastatin. 8. Aspirin. 9. Amlodipine. ALLERGIES: No known drug allergies. FAMILY HISTORY: Significant for hypertension. SOCIAL HISTORY: No tobacco, no alcohol. 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 Lives with his at home and his daughter lives next door. REVIEW OF SYSTEMS: As per HPI. Otherwise, all other systems negative. PHYSICAL EXAMINATION GENERAL: Sitting up in bed, interactive, pleasant, in no apparent distress. VITAL SIGNS: In the emergency room, blood pressure 143/75, heart rate 77, respiratory rate is 20, O2 sat ranges between 90% and 97%, T-max is 101.7. HEENT: His oropharynx is clear. He has moist mucous membranes. Sclerae are anicteric. He has non-elevated JVD. He has no cervical or supraclavicular lymphadenopathy. LUNGS: Clear except for rales in his right upper lobe. HEART: He has regular rate and rhythm. He has systolic ejection murmur 2/6 throughout his precordium. ABDOMEN: Soft, nontender, nondistended. EXTREMITIES: Warm and well perfused. He does have bilateral edema, greater on the left, which he reports is chronic. He does have erythema, pretibial region on the right that extended circumferentially from about 2 inches above his ankle to about 6 inches below his knee, around his leg, has been demarcated __ now____. NEUROLOGIC: He is alert and oriented x3. His cranial nerves II through XII are intact. PSYCHIATRIC: He has no apparent agitation or depression. DIAGNOSTIC STUDIES/LAB DATA: Labs reviewed. Troponin I of 0.02 on 3 consecutive checks. White blood cell count is 7.4. Data reviewed. Chest x-ray: No active cardiopulmonary disease; however, pleural plaques throughout consistent with previous asbestos exposure. Bilateral Dopplers of his lower extremities, bilateral calf edema. ASSESSMENT AND PLAN: This is an 87-year-old man presenting with chest tightness that was lasting for seconds intermittently with turning his head, found with high fevers of uncertain etiology, although cellulitis of right lower extremity is high on the differential. 1. Cellulitis. Of greatest concern is development while on Bactrim. We will give 1 dose of vancomycin, although I am not convinced this is methicillin- resistant Staphylococcus aureus as the patient is already on Bactrim unless this represents oral failure. It was not causing him any clinically significant discomfort, although he does have high fevers. The area has been demarcated. Follow tomorrow. Adjust medications as necessary. 2. High fever. Again, cellulitis on the differential. Difficult to ascertain underlying pneumonia, however, has no cough or shortness of breath. He did have chest discomfort, but only when turning his head. He received a dose of ceftriaxone in the emergency room, he received dose of vancomycin for cellulitis as indicated above. I would plan on following his fever curve; if improves, may consider discharge on Bactrim for his leg and/or change of medication, potentially drug-related fever from Bactrim. 3. Hypertension. As noted above, medication reconciliation is shoddy. I did start him on lisinopril, but full medication reconciliation should be completed. 4. Benign prostatic hypertrophy. Continue tamsulosin and finasteride. 5. DVT prophylaxis. Mark. [id number]/CPS #: [id number] [facility]
[2018-07-01 08:54] LABS: Influenza A Molecular NEGATIVE (Negative); Influenza B Molecular NEGATIVE (Negative)
[2018-07-01] MEDS ORDERED: Finasteride TAB* 5 MG PO SCH (09:00)
[2018-07-01] MEDS ORDERED: Enoxaparin(*) 40 MG/0.4 ML SYR SUBCUT SCH (09:00)
[2018-07-01] MEDS ORDERED: Lisinopril TAB* 10 MG PO SCH (09:00)
[2018-07-01] MEDS ORDERED: Aspirin 81 mg CHEW TAB* 81 MG TAB.CHEW PO SCH (09:00)
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
[2018-07-01] MEDS ORDERED: amLODIPine TAB* 5 MG PO SCH (10:00)
[2018-07-01 12:36] VITALS: BP 159/67
[2018-07-01] MEDS ORDERED: Amoxicillin/Clavulanate TAB* 875 MG PO SCH (13:00)
[2018-07-01] MEDS ORDERED: DOXYcycline CAP(*) 100 MG PO SCH (13:00)
--- NOTE | 2018-07-01 19:56 | DS ---
DISCHARGE SUMMARY: DATE OF ADMISSION: 06/30/18 DATE OF DISCHARGE: 07/01/18 PRIMARY CARE PROVIDER: Dr. Hopkins. DISPOSITION: Discharged to home. Disposition stable. PRIMARY DIAGNOSIS: Cellulitis. SECONDARY DIAGNOSES: 1. Hypertension. 2. 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 3. Mild cognitive impairment. 4. Hyperlipidemia. 5. Benign prostatic hyperplasia. 6. Status post aortic valve replacement. MEDICATIONS ON DISCHARGE: 1. Amlodipine 10 mg p.o. daily. 2. Amoxicillin clavulanate 875 mg p.o. b.i.d. for an additional 4 days after discharge. 3. Aspirin 325 mg p.o. daily. 4. Atorvastatin 10 mg p.o. daily. 5. Vitamin B12 1000 mcg p.o. daily. 6. Doxycycline 100 mg p.o. b.i.d. for an additional 4 days after discharge. 7. Finasteride 5 mg p.o. daily. 8. Lisinopril 20 mg p.o. daily. 9. Metoprolol succinate and HCTZ combo pill 25/12.5 mg 2 tabs by mouth p.o. b.i.d. 10. Tamsulosin 0.4 mg p.o. daily. Medication changes on this hospitalization include the addition of Augmentin 875 mg p.o. b.i.d. and d oxycycline 100 mg p.o. b.i.d. as well as a discontinuation of Bactrim b.i.d. HISTORY OF PRESENT ILLNESS AND HOSPITAL COURSE: This is an 87-year-old man with above past medical h istory, who presented initially to Urgent Care with a vague complaint of chest tightness and pain and was quickly referred to the emergency room from Urgent Care for further evaluation. On presentation in the emergency room, his complaints of chest tightness and chest pain had completely dissipated. E KG was unremarkable and troponins x2 were unremarkable in the emergency room, although he was found t o be febrile to 101.7 and concerns for new right lower extremity cellulitis and hospital team was ask ed to evaluate and also of note the patient was placed on Bactrim for urinary tract infection on 12/07 by his urologist in the setting of worsening BPH symptoms and felt that the symptoms were improv ing. The right lower extremity cellulitis was not necessarily bothering the patient, in fact he did not even notice it, but notes that he had bumped his right leg on his walker several days prior. He was admitted to the hospital under observation and his hospital course by problem is as follows: 1. Fever. This was presumed to be associated with his cellulitis. He had no other systemic inflamm atory responses including no elevated white blood cells, no tachycardia, no hypertension, and no tach ypnea. He defervesced with vancomycin and ceftriaxone in the emergency room and had no further fever s while he was in the hospital. 2. Right lower extremity cellulitis. In the presumed setting of Bactrim failure as an outpatient, w kenzieh is concerning given good coverage with both staph and streptococcus. On our antibiogram, there is very little MRSA resistance in Bactrim, although doxycycline has slightly better coverage in this area and this is reasonable to change coverage for skin and soft tissue infections to doxycycline for continued MRSA coverage. Furthermore with doxycycline, should double cover for a streptococcus and we will place the patient on Augmentin as this is also susceptible to the E. coli that he was growing in his urine prior. The patient received a total of 5 days for skin and soft tissue infection and r ight lower extremity cellulitis and will complete a 7-day course for his urinary tract infection for coverage. Blood cultures were done, which showed no growth to date on hospital day 2. 3. Urinary tract infection as above. This was pansensitive E. coli diagnosed prior to this hospital ization. His antibiotics were changed in the setting of new right lower extremity cellulitis, althou gh will be sent on Augmentin, which under sensitivities done in the clinic showed susceptible. 4. Chest pain. On further interview with the patient, he describes not jaelyn chest pain, but in fac t a chest tightness in the setting of anxiety which he has had in the past. He has significant stres s in the home with his recently falling and breaking her leg and currently in a rehabilitation f acility and reports that the chest discomfort is more provoked when he is discussing with his family about her status. His family notes that he has a long history of anxiety that remains untreated and he does not wish to treat at this time. Of note, his EKG showed no concerning findings for active is chemia and troponins x3 were negative for any myocardial damage. 5. Hypertension. We continued his lisinopril and amlodipine in the hospital and he will be sent jaylin e on his home regimen. 6. BPH. He has remained on his home finasteride. 7. Hyperlipidemia. Continued his home Lipitor. While he is in the hospital, the patient was ambula tory, was on DVT prophylaxis with Lovenox. He was a full code. On hospital day 2, the patient felt t hat his right lower extremity cellulitis improved significantly. He felt back to baseline, was able to ambulate and tolerate p.o. He had defervesced fully and discussed with family that changing outpa tient antibiotics for skin and soft tissue infection as well as UTI will be done and again resume a t rial of outpatient treatment for right lower extremity cellulitis. Counseled family on treatment af[place] lure and to return to hospital if persistent fevers or right lower extremity were to look worse and t hey agreed and understanding. Vital signs at time of discharge were temperature of 97.8, blood pressure of 159/67, heart rate of 89 , and oxygen of 95% on room air. Labs on 06/30/18 showed white blood cell count of 7.4, hemoglobin 10.7, hematocrit 32, platelets of 1 94. Sodium of 137, potassium 4, chloride 105, carbon dioxide 25, anion gap 7, BUN 12, creatinine 1, glucose 111, lactic acid 1.4, alkaline phosphatase slightly elevated at 146 and BNP at 397 consistent with prior baseline. Rapid flu was done which was negative. Imaging done during this hospitalization included venous Doppler study of the right lower extremity, which showed no clot or abscess. An EKG was done, which showed normal sinus rhythm. A chest x-ray w as done, which showed trace right pleural effusion and extensive pleural plaque unchanged consistent with prior asbestos exposure. ITEMS TO FOLLOW UPON DISCHARGE: Right lower extremity cellulitis. Area was demarcated with pen and had very [id number] pink streaking just around the area of his ulcer where he had bumped despi te of his walker. Requested primary care provider followup with right lower extremity cellulitis and ensure resolution of symptoms. If there is outpatient failure, this would be considered outpatient failure with 2 oral antibiotics and the patient should be admitted for IV antibiotics for resistant s kin and soft tissue infection. TIME SPENT: Thirty minutes was spent in the planning of this discharge with over half of that spent directly at the bedside of the patient providing direct patient care. The patient and his family are agreeance with plan for discharge to home and have no further questions. They will arrange for foll owup with primary care provider within 4 to 7 days. Counseled that if fever or worsening right lower extremity redness, pain, chest pain, or shortness of breath were to return to please seek medical ca re. If there are any questions about the care provided to this patient during this hospitalization, please do not hesitate to reach out to us. [id number]/[facility] #: [id number]
== END 2018-07-01 13:50 | disposition home or self-care (01) ==
LOC: ED 18:03 → MED 07-01 01:24
PROVIDERS: ADMIT Internal Medicine; ATTEND Internal Medicine
DX: L03.115 Cellulitis of right lower limb (principal); R07.9 Chest pain, unspecified; I10 Essential (primary) hypertension; J84.9 Interstitial pulmonary disease, unspecified; G31.84 Mild cognitive impairment of uncertain or unknown etiology; E78.5 Hyperlipidemia, unspecified; N40.0 Benign prostatic hyperplasia without lower urinary tract symptoms; Z95.4 Presence of other heart-valve replacement; Z79.82 Long term (current) use of aspirin; K59.00 Constipation, unspecified; R60.9 Edema, unspecified; R50.9 Fever, unspecified
CPT/HCPCS: 36415; 71045; 80053; 81003; 81015; 83605; 83880; 84484; 85025; 87086; 93005; 93970; 99283; A9270-GY; G0378; J0696; J1650; J3370

== ENCOUNTER 2018-09-12 09:25 | Day surgery (SDC) | payer MEDICARE ==
--- NOTE | 2018-09-08 08:48 | HP ---
PREOPERATIVE HISTORY AND PHYSICAL: DATE OF SURGERY/ADMISSION: 09/12/18 - OR [facility] DATE OF OFFICE VISIT/ENCOUNTER: 08/23/18 ATTENDING SURGEON: Cat Regalado MD * (DICTATED BY DIANN WORRELL) ACOUSTICAL INSTALLER: Dr. Butler. PROCEDURE: Left wrist extensor tenosynovectomy. HISTORY OF PRESENT ILLNESS: This is an 87-year-old male, who has had problems with left wrist extensor tenosynovitis since February of 2018. He has significant osteoarthritis of the radiocarpal joint and developed tenosynovitis. He has been treated with 2 cortisone injections overtime, which did help, but the tenosynovitis never fully resolved and recurred. At this point, Dr. Regalado is recommending surgical intervention for best outcome and the patient has consented to proceed. The patient patient has had some cardiac issues in the past and we will receive clearance for surgery by his classification counselor , Dr. Butler. PAST MEDICAL HISTORY: 1. Hypertension. 2. Hypercholesterolemia. 3. Decreased hearing. 4. History of aortic valve disorder. PAST SURGICAL HISTORY: 1. Left total knee arthroplasty in 1998. 2. Right total knee arthroplasty in 1999. 3. Aortic valve replacement. 4. Bilateral cataract removal. 5. Left carpal tunnel release. MEDICATIONS: 1. Amlodipine besylate 10 mg daily. 2. Mikael Aspirin 325 mg daily. 3. Finasteride 5 mg daily. 4. Flomax 0.4 mg daily. 5. Irbesartan/hydrochlorothiazide 150/12.5 mg daily. 6. Lipitor 10 mg daily. 7. Lisinopril 20 mg daily. 8. Meloxicam 7.5 mg twice daily. 9. Metoprolol succinate ER 50 mg twice a day. 10. Vitamin B12 1000 mcg daily. ALLERGIES: No known drug allergies. FAMILY HISTORY: Cancer. SOCIAL HISTORY: The patient is retired. He denies tobacco and recreational drug use. He does not drink alcohol. REVIEW OF SYSTEMS: Negative for general, cephalic, cardiovascular, respiratory , GI, , other musculoskeletal, integumentary, endocrine, neurologic, and hematologic symptoms. Infectious Disease: Negative for MRSA, hepatitis C, HIV. PHYSICAL EXAMINATION GENERAL: Well-developed, well-nourished 87-year-old male, in no acute distress. VITAL SIGNS: Height 5 feet 7 inches, weight 187 pounds, pulse rate 70, blood pressure 140/70. HEENT: Normocephalic, atraumatic. Pupils are equal, round, and reactive to light and accommodation. Extraocular movements are intact. Throat is clear. NECK: Supple. No palpable lymph nodes. PULMONARY: Lungs are clear to auscultation bilaterally. No wheezes, rales, or rhonchi. CARDIOVASCULAR: Regular rate and rhythm. S1, S2. No murmurs, rubs, or gallops. No edema. ABDOMEN: Positive bowel sounds. Soft, nontender. NEUROLOGICAL: Alert and oriented x3. Cranial nerves II through XII are intact. Sensation is intact to light touch. MUSCULOSKELETAL: On exam of his left hand, he has swelling on the dorsal aspect , significant tenosynovitis. It is minimally tender to palpation. He has normal finger extension, but has trouble making a tight fist due to degenerative changes in his fingers. SKIN: Intact. Neurovascular function is intact. IMPRESSION: Tenosynovitis, extensor tendon, left wrist. PLAN: The patient is scheduled to undergo a left wrist extensor tenosynovectomy with Dr. Regalado on 09/12/18. He will return to the office 10 days postop for followup and suture removal. A prescription for Ultracet was e- scribed to the patient's pharmacy for postoperative pain management. We will receive clearance prior to surgery from the patient's classification counselor, Dr. Butler. DIANN WORRELL [id number]/[facility] #: [id number] JED
[~2018-09-12 09:25] MED LIST changes: -Acetaminophen TAB* 325 MG PO PRN; +Buffered Lidocaine 1% SYRIN* 1 ML/SYRINGE INTRADERM ONE; -Buffered Lidocaine 1% SYRIN* 3 ML/SYR SYRINGE INTRADERM ONE; +Dexamethasone IV* 4 MG/ML 1 ML (4 MG) IV SLOW PU ONE; -Dexamethasone IV* 4 MG/ML 1 ML (4 MG) ONE; -Dexamethasone TAB* 4 MG PO ONE; -Famotidine IV* 10 MG/ML 2 ML (20 mg) IV ONE; -Famotidine IV* 10 MG/ML 2 ML (20 mg) ONE; -HYDROcodone/ACETAMIN 5-325 MG* 1 TAB PO PRN; -Ibuprofen TAB* 400 MG PO PRN; +Lactated Ringers 1000 ML Bag* 1,000 ML IV SCH; -Lidocaine 2% PF* 5 ML VIAL ONE; -Ondansetron INJ* 2 MG/ML VIAL IV PRN; -Propofol* 10 MG/ML 20 ML BTL IV PUSH ONE; -fentaNYL* 50 MCG/ML 2 ML VIAL (100 MCG VIAL) IV PRN; -fentaNYL* 50 MCG/ML 2 ML VIAL (100 MCG VIAL) ONE
[2018-09-12] MEDS ORDERED: Lidocaine 2% PF * 5 ML VIAL ONE (09:31)
[2018-09-12] MEDS ORDERED: Propofol* 10 MG/ML 20 ML BTL ONE (09:31)
[2018-09-12] MEDS ORDERED: fentaNYL* 50 MCG/ML 2 ML VIAL (100 MCG VIAL) ONE (09:31)
[2018-09-12] MEDS ORDERED: Dexamethasone IV* 4 MG/ML 1 ML (4 MG) ONE (09:41)
[2018-09-12] MEDS ORDERED: Bupivacaine 0.5% SDV PF* 30ML VIAL ONE (10:47)
[2018-09-12] MEDS ORDERED: Ondansetron INJ* 2 MG/ML VIAL ONE (11:15)
[2018-09-12] MEDS ORDERED: DiMENhydriNATE IV* 50 MG/ML VIAL IV PUSH PRN (11:17)
[2018-09-12] MEDS ORDERED: Ibuprofen TAB* 600 MG PO PRN (11:17)
[2018-09-12] MEDS ORDERED: fentaNYL* 50 MCG/ML 2 ML VIAL (100 MCG VIAL) IV PRN (11:17)
[2018-09-12] MEDS ORDERED: oxyCODONE/Acetamin 5/325 MG* TAB PO PRN (11:17)
[2018-09-12] MEDS ORDERED: Acetaminophen TAB* 325 MG PO PRN (11:17)
[2018-09-12] MEDS ORDERED: Naloxone* 0.4 MG/ML 1 ML VIAL IV PRN (11:17)
[2018-09-12] MEDS ORDERED: EPHEDrine (Pressors)* 50 MG/ML VIAL ONE (11:21)
[2018-09-12 13:00] VITALS: BP 148/66
--- NOTE | 2018-09-12 13:06 | OP ---
DATE OF OPERATION: 09/12/18 [facility] DATE OF : 28 SURGEON: Cat Regalado MD FREIGHT AGENT: DIANN Middleton ANESTHESIA: General. PRE-OP DIAGNOSIS: Extensor tenosynovitis on the left. POST-OP DIAGNOSIS: Extensor tenosynovitis on the left. OPERATIVE PROCEDURE: Extensor tenosynovectomy, left wrist. ESTIMATED BLOOD LOSS: Zero. TOURNIQUET TIME: About 45 minutes. INDICATIONS FOR PROCEDURE: Eduard is an 87-year-old man who has recurrent extensor tenosynovitis on the left. He had a cortisone injection, the symptoms resolved, but the problem has recurred and he presents now for an extensor tenosynovectomy. DESCRIPTION OF PROCEDURE: The patient was brought to the operating room, and was given a general anesthetic. He was placed in the supine position on the operating table with the tourniquet around his left upper arm. The skin of his left upper extremity was prepped and draped in usual sterile fashion. The hand and forearm were exsanguinated and the tourniquet elevated to 250 mmHg. A longitudinal incision was made over the visible and palpable tenosynovitis, dissected bluntly through the subcutaneous tissue down to the fourth extensor compartment. The tenosynovitis was debrided, it extended from the musculotendinous junction almost to the MP joint of the index, middle and ring fingers. The fifth extensor compartment was noninvolved, there was some tenosynovitis on the EPL tendon and this was debrided as well. The extensor retinaculum was lengthened in Z fashion and after all of the tenosynovitis was removed and the frayed tendons were debrided, the extensor retinaculum was repaired with 4-0 nylon suture in lengthened fashion. The wound was copiously irrigated with saline. A Hanna drain was placed and then the skin edges were reapproximated with 4-0 nylon suture. The wound was dressed with Xeroform, 4x4 , Webril, ABD and Sixto wrap. The patient tolerated the procedure well and was brought to the recovery room in good condition. [id number]/[facility] #: [id number] [facility]
== END 2018-09-12 13:12 | disposition home or self-care (01) ==
LOC: OREAST 09:25
PROVIDERS: ATTEND Orthopaedic Surgery
DX: M65.832 Other synovitis and tenosynovitis, left forearm (principal); I10 Essential (primary) hypertension; E78.5 Hyperlipidemia, unspecified; M19.90 Unspecified osteoarthritis, unspecified site; Z95.2 Presence of prosthetic heart valve
CPT/HCPCS: 88305; J1100; J2405; J2704; J3010; J3490

== ENCOUNTER 2018-12-01 08:03 | Emergency (ER) | payer MEDICARE ==
[2018-12-01 08:59] VITALS: BP 150/68
--- NOTE | 2018-12-01 09:19 | ED ---
Back Pain - HPI Summary HPI Summary: This patient is a 88-year-old male presenting to the ED with right-sided low back pain radiating into the posterior leg times several weeks. He states he twisted his back a few weeks ago and the area to the right lower back has been intermittently painful with radiation. He has never had this in the past. He does have a history of back pain, however has never had sciatic pain. He denies any bladder or bowel dysfunction, however he states when he bears down to push on his bladder, he is having pain to the right lower back over the sciatic area. Denies any numbness or tingling to the perineum area. Continues to have physical therapy 3 times weekly for other low back pain. Continues to take tramadol with good relief. He states prior to arrival, his symptoms had much improved after taking tramadol at home. - History of Current Complaint Chief Complaint: EDBackInjuryPain Stated Complaint: BACK PAIN PER PT Time Seen by Provider: 12/01/18 08:17 Hx Obtained From: Patient, Family/[employer] Dispatcher Onset/Duration: Lasting Weeks Onset/Duration: Started Weeks Ago Timing: Intermittent Back Pain Location: Is Discrete @ - right low back over sciatic notch radiating to the R posterior leg/lateral portion of the leg Pain Intensity: 2 Pain Scale Used: 0-10 Numeric Character: Aching Alleviating Symptom(s): Rest, Position Associated Signs And Symptoms: Negative: Weakness, Numbness, Abdominal Pain, Flank Pain, Bladder Incontinence, Bowel Incontinence, Weight Loss, Pain with Weight Bearing - Risk Factors AAA Risk Factors: Negative TAD Risk Factors: Negative Cauda Equina Risk Factors: Negative Epidural Abscess Risk Factors: Negative - Allergies/Home Medications Allergies/Adverse Reactions: Allergies Allergy/AdvReac Type Severity Reaction Status Date / Time No Known Allergies Allergy Verified 12/01/18 08:07 PMH/Surg Hx/FS Hx/Imm Hx Previously Healthy: Yes Endocrine/Hematology History: Denies: Hx Diabetes, Hx Thyroid Disease Cardiovascular History: Reports: Hx Hypertension, Hx 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, Other Cardiovascular Problems/Disorders - HIGH CHOLESTEROL Denies: Hx Pacemaker/ICD Respiratory History: Denies: Hx Asthma, Hx Chronic Obstructive Pulmonary Disease (COPD) GI History: Denies: Hx Ulcer History: Reports: Other Problems/Disorders - ENLARGED PROSTATE Denies: Hx Renal Disease Musculoskeletal History: Reports: Hx Arthritis - all over, Hx Back Problems Sensory History: Reports: Hx Cataracts - rossy, Hx Contacts or Glasses - glasses Denies: Hx Hearing Aid Opthamlomology History: Reports: Hx Cataracts - rossy, Hx Contacts or Glasses - glasses Neurological History: Reports: Hx Nerve Disease - carpal tunnel left hand Psychiatric History: Denies: Hx Panic Disorder - Surgical History Surgery Procedure, Year, and Place: Knee Replacement bilat, 1997, 1998. Aortic valve replacement 2016 - [facility] TISS[facility] VALVE MODEL # TF21A (@ [facility])- CONDITIONAL 5 UP TO 3T FOR MRIs ( PT KNOWNS TO BRING CARD). CATARACT rossy, 2017. LEFT WRIST CARPAL TUNNEL,, 2017 Hx Anesthesia Reactions: No - Immunization History Date of Influenza Vaccine: 10/2016 Hx Pertussis Vaccination: No Immunizations Up to Date: Yes Infectious Disease History: No Infectious Disease History: Denies: Hx Hepatitis, Hx Human Immunodeficiency Virus (HIV), Hx of Known/ Suspected MRSA, Traveled Outside the in Last 30 Days - Family History Known Family History: Positive: Hypertension Negative: Cardiac Disease, Diabetes - Social History Occupation: Unemployed Lives: With Family Alcohol Use: None Hx Substance Use: No Substance Use Type: Reports: None Hx Tobacco Use: No Smoking Status (MU): Never Smoked Tobacco Review of Systems Constitutional: Negative Negative: Fever, Chills, Fatigue, Skin Diaphoresis Negative: Palpitations, Chest Pain Negative: Shortness Of Breath, Cough Genitourinary: Negative Positive: no symptoms reported, see HPI. Negative: flank pain Positive: Arthralgia - low back pain - R. Negative: Myalgia Neurological: Negative All Other Systems Reviewed And Are Negative: Yes Physical Exam Triage Information Reviewed: Yes Vital Signs On Initial Exam: Initial Vitals Temp Pulse Resp BP Pulse Ox 97.8 F 70 18 206/81 98 12/01/18 08:03 12/01/18 08:03 12/01/18 08:03 12/01/18 08:03 12/01/18 08:03 Vital Signs Reviewed: Yes Appearance: Positive: Well-Appearing, Well-Nourished Skin: Positive: Warm, Skin Color Reflects Adequate Perfusion Head/Face: Positive: Normal Head/Face Inspection Eyes: Positive: EOMI, TEENA, Conjunctiva Clear Neck: Positive: Supple, No Lymphadenopathy Respiratory/Lung Sounds: Positive: Clear to Auscultation, Breath Sounds Present Cardiovascular: Positive: RRR, Pulses are Symmetrical in both Upper and Lower Extremities Musculoskeletal: Positive: Pain @ - right low back over sciatic notch radiating to the R posterior leg/lateral portion of the leg- no pain currently Neurological: Positive: Sensory/Motor Intact, Alert, Oriented to Person Place, Time, Normal Gait, Speech Normal, Other - no numbness/tingling noted to the bilateral lower ext. negative straight leg raise AVPU Assessment: Alert Diagnostics - Vital Signs Vital Signs Temp Pulse Resp BP Pulse Ox 12/01/18 08:58 97.8 F 61 19 150/68 97 12/01/18 08:11 66 168/68 98 12/01/18 08:10 73 95 12/01/18 08:03 97.8 F 70 18 206/81 98 - Laboratory Lab Statement: Any lab studies that have been ordered have been reviewed, and results considered in the medical decision making process. Back Pain Course/Dx - Course Course Of Treatment: This patient is evaluated for acute right-sided low back pain which occurred after twisting [place] 2 weeks ago. He's having pain over the sciatic area with radiation down the posterior leg as well as the lateral portion of the leg. Denies any foot drop. Denies any numbness or tingling. He is endorsing this pain as an ache. Denies any tingling to the perineum. Denies any bladder or bowel dysfunction. He continues to see physical therapy 3 times weekly. Negative straight leg raise. Plantar flexion and dorsiflexion without discomfort. Patient is able to flex and extend as well as rotate about the hips without discomfort. He is rating his pain currently a 1/10. Discussed with patient treatment options. He will continue physical therapy 3 times weekly. He will be given prednisone once daily 5 days. He will continue tramadol as needed. He is given low back exercises and is encouraged moist heat to the area. If symptoms continue he will follow-up with his PCP. - Diagnoses Differential Diagnosis/HQI/PQRI: Positive: Strain, Sprain, Other - lumbar radiculopathy, piriformis syndrome Provider Diagnoses: Sciatica Discharge ED - Sign-Out/Discharge Documenting (check all that apply): Patient Departure Patient Received Moderate/Deep Sedation with Procedure: No - Discharge Plan Condition: Stable Disposition: HOME Prescriptions: predniSONE TAB* [Deltasone TAB*] 50 mg PO DAILY #5 tab MDD 1 Patient Education Materials: Sciatica (ED), Lower Back Exercises (ED) Referrals: Nehemias Hopkins MD [Primary Care Provider] - Additional Instructions: Please follow-up with your PCP as well as pain management Continue with physical therapy 3 times per week and let them know about your sciatic pain Prednisone once daily 5 days, take this in the morning Continue with her tramadol only as needed Moist heat to the area Gentle stretches - Billing Disposition and Condition Condition: STABLE Disposition: Home - Attestation Statements Provider Attestation: I was available for consult. This patient was seen by the [facility]. The patient was not presented to, seen by, or examined by me. -Mary Ann
== END 2018-12-01 08:45 | disposition home or self-care (01) ==
LOC: ED 08:03
DX: M54.30 Sciatica, unspecified side (principal); I10 Essential (primary) hypertension; Z95.2 Presence of prosthetic heart valve; E78.00 Pure hypercholesterolemia, unspecified; N40.0 Benign prostatic hyperplasia without lower urinary tract symptoms; Z96.653 Presence of artificial knee joint, bilateral; Z79.899 Other long term (current) drug therapy
CPT/HCPCS: 99282